=== PATIENT | male | born 1945 | race Caucasian/White ===

== ENCOUNTER 2019-09-15 22:29 | Inpatient (IN) ==
[2019-09-16] MEDS ORDERED: Ondansetron 4 MG/2 ML VIAL IVP PRN (02:19)
[2019-09-16] MEDS ORDERED: Naloxone 0.4 MG/ML INJ IVP PRN (02:19)
[2019-09-16] MEDS: *HR* Metoprolol 5 MG/5 ML VIAL IVP PRN ×2 (03:54→10:43)
[2019-09-16] MEDS: Ipratropium Neb 0.5 MG NEBULIZER IH SCH ×4 (03:57→21:59)
[2019-09-16] MEDS: Levalbuterol Neb 1.25 MG/3 ML IH SCH ×4 (03:57→21:59)
[2019-09-16 05:28] LABS: Red Cell Distribution Width 13.9 % (11.5-14.5)
[2019-09-16 05:29] LABS: Hematocrit 45.4 % (37.5-50.1); Hemoglobin 13.9 g/dL (12.9-16.9); Mean Corpuscular HGB Conc 30.6 g/dL (31.6-35.5); Mean Corpuscular Hemoglobin 32.7 pg (28.0-33.3); Mean Corpuscular Volume 106.8 fL (83.0-100.0); Platelet Count 206 K/mcL (140-400); Red Blood Count 4.25 M/mcL (4.19-5.50); White Blood Count 26.3 K/mcL (4.3-11.1)
[2019-09-16 05:38] LABS: INR 1.6; Prothrombin Time 18.5 Seconds (9.4-12.1)
[2019-09-16 06:09] LABS: Calcium 8.7 mg/dL (8.6-10.3); Magnesium 1.9 mg/dL (1.6-2.6); Phosphorous 4.1 mg/dL (2.7-4.5)
[2019-09-16 06:24] LABS: ABG Base Excess 5 mEq/L (-2 to 3); ABG HCO3 32 mEq/L (21-27); ABG Oxygen Saturation 91 % (95-98); ABG PCO2 59 mmHg (35-45); ABG PH 7.35 pH Units (7.32-7.45); ABG PO2 67 mmHg (85-104); ABG TCO2 34 mEq/L (20-26)
[2019-09-16] MEDS: Piperacillin/Tazobactam 3.375 GM in 0.9 % Sodium Chloride Mini Bag 100 ML IVPB SCH ×2 (07:47→16:50)
[2019-09-16] MEDS ORDERED: 0.9 % Sodium Chloride 1,000 ML IVC SCH (09:30)
[2019-09-16] MEDS: DilTIAZem 50 MG in 0.9 % Sodium Chloride 40 ML IVC SCH ×3 (11:20→22:41)
[2019-09-16] MEDS ORDERED: 0.9 % Sodium Chloride 250 ML IVC ONE ×2 (11:28→12:54)
[2019-09-16] MEDS ORDERED: 0.9 % Sodium Chloride 250 ML ONE (11:30)
[2019-09-16] MEDS ORDERED: 0.9 % Sodium Chloride 500 ML ONE (14:06)
[2019-09-16] MEDS ORDERED: Ringers Solution, Lactated 500 ML IVC ONE (15:07)
[2019-09-16] MEDS ORDERED: Ketorolac 15 MG/ML VIAL IVP ONE (17:27)
[2019-09-16] MEDS ORDERED: Heparin 25,000 UNIT/250 ML D5W 25,000 UNIT/250 ML IV.SOLN IVC SCH (18:15)
[2019-09-16 19:28] LABS: Heparin anti-factor XA UFH 0.43 IU/mL (0.30-0.70); INR 1.5; Prothrombin Time 17.3 Seconds (9.4-12.1)
[2019-09-16] MEDS ORDERED: *HR* Heparin 5,000 UNIT/ML VIAL IVP PRN (19:39)
[2019-09-16 20:06] LABS: Activated Partial Thrombo Time 34.5 Seconds (26.0-36.0)
[2019-09-17] MEDS ORDERED: *HR* OxyCODONE/APAP 5/325 TABLET PO ONE (00:11)
[2019-09-17] MEDS: Piperacillin/Tazobactam 3.375 GM in 0.9 % Sodium Chloride Mini Bag 100 ML IVPB SCH ×3 (00:25→16:16)
[2019-09-17] MEDS ORDERED: *HR* Heparin 5,000 UNIT/ML VIAL IVP ONE (00:57)
[2019-09-17] MEDS: Heparin 25,000 UNIT/250 ML D5W 25,000 UNIT/250 ML IV.SOLN IVC SCH ×3 (01:18→16:16)
[2019-09-17] MEDS: Ipratropium Neb 0.5 MG NEBULIZER IH SCH ×4 (03:51→22:05)
[2019-09-17] MEDS: Levalbuterol Neb 1.25 MG/3 ML IH SCH ×4 (03:51→22:05)
[2019-09-17 07:57] LABS: Basophils # 0.1 K/mcL (0.0-0.2); Basophils % 0.2 %; Hematocrit 40.6 % (37.5-50.1); Hemoglobin 12.8 g/dL (12.9-16.9); Lymphocytes # 0.8 K/mcL (0.6-4.6); Lymphocytes % 4.1 %; Mean Corpuscular HGB Conc 31.5 g/dL (31.6-35.5); Mean Corpuscular Hemoglobin 32.7 pg (28.0-33.3); Mean Corpuscular Volume 103.8 fL (83.0-100.0); Mean Platelet Volume 10.2 fL (9.4-12.4); Monocytes # 0.7 K/mcL (0.0-1.3); Monocytes % 3.5 %; Neutrophils # 18.5 K/mcL (1.6-8.9); Nucleated Red Blood Cells 0.1 /100 WBC (0); Platelet Count 174 K/mcL (140-400); Red Blood Count 3.91 M/mcL (4.19-5.50); Red Cell Distribution Width 13.9 % (11.5-14.5); Segmented Neutrophils % 91.2 %; White Blood Count 20.3 K/mcL (4.3-11.1)
[2019-09-17 08:20] LABS: Calcium 8.7 mg/dL (8.6-10.3); Magnesium 2.1 mg/dL (1.6-2.6); Phosphorous 4.6 mg/dL (2.7-4.5); Potassium 4.4 mEq/L (3.5-5.1)
[2019-09-17] MEDS ORDERED: Ringers Solution, Lactated 1,000 ML IVC SCH (08:30)
[2019-09-17] MEDS ORDERED: Lidocaine -MPF 1% 5 ML AMPUL INFILT ONE (10:30)
[2019-09-17 14:51] LABS: Sodium, Urine 14.6 mEq/L
[2019-09-17 14:55] LABS: Bilirubin,Urine Small (Negative); Blood,Urine Negative (Negative); Clarity,Urine Cloudy (Clear); Color,Urine Dark Yellow (Yellow); Glucose,Urine (UA) Normal (Normal); Ketones,Urine Negative (Negative); Leukocyte Esterase,Urine Trace (Negative); Nitrite,Urine Negative (Negative); Protein,Urine 30 mg/dL (Neg-Trace); Specific Gravity,Urine 1.024 (1.010-1.025)
[2019-09-17 15:00] LABS: Bacteria,Urine None Seen per hpf (None-Few); Hyaline Casts,Urine None Seen per lpf (None-Few); RBC,Urine 0-3 per hpf (0-3); Squamous Epithelial Cell,Urine Many per lpf (None-Few)
[2019-09-17] MEDS ORDERED: Perflutren Lipid Microsphere 1.3 ML in 0.9 % Sodium Chloride 8.7 ML IVP ONE (16:03)
[2019-09-17] MEDS ORDERED: Acetaminophen IV 1,000 MG/100 ML INFUS..BTL IVPB ONE (22:10)
[2019-09-17] MEDS: Ringers Solution, Lactated 1,000 ML IVC SCH (22:44)
[2019-09-18] MEDS: Piperacillin/Tazobactam 3.375 GM in 0.9 % Sodium Chloride Mini Bag 100 ML IVPB SCH ×4 (00:34→23:11)
[2019-09-18] MEDS: *HR* Heparin 5,000 UNIT/ML VIAL IVP PRN ×2 (00:45→16:20)
[2019-09-18] MEDS: Heparin 25,000 UNIT/250 ML D5W 25,000 UNIT/250 ML IV.SOLN IVC SCH ×3 (01:00→19:33)
[2019-09-18 03:28] LABS: Hematocrit 34.1 % (37.5-50.1); Mean Corpuscular HGB Conc 31.1 g/dL (31.6-35.5); Mean Corpuscular Hemoglobin 32.6 pg (28.0-33.3); Mean Corpuscular Volume 104.9 fL (83.0-100.0); Mean Platelet Volume 9.8 fL (9.4-12.4); Platelet Count 164 K/mcL (140-400); Red Blood Count 3.25 M/mcL (4.19-5.50); Red Cell Distribution Width 13.8 % (11.5-14.5)
[2019-09-18 03:29] LABS: Hemoglobin 10.6 g/dL (12.9-16.9)
[2019-09-18] MEDS: Levalbuterol Neb 1.25 MG/3 ML IH SCH ×4 (03:42→21:11)
[2019-09-18] MEDS: Ipratropium Neb 0.5 MG NEBULIZER IH SCH ×4 (03:42→21:11)
[2019-09-18 03:43] LABS: Albumin 2.7 g/dL (3.5-5.7); Magnesium 1.7 mg/dL (1.6-2.6); Potassium 3.6 mEq/L (3.5-5.1)
[2019-09-18] MEDS: Ringers Solution, Lactated 1,000 ML IVC SCH ×2 (06:43→16:08)
[2019-09-18] MEDS ORDERED: Metoprolol XL (24 HR) Succ 50 MG TAB.ER.24H PO SCH (09:00)
[2019-09-18] MEDS: *HR* Metoprolol 5 MG/5 ML VIAL IVP PRN (10:24)
[2019-09-18] MEDS: Gabapentin 300 MG CAPSULE PO SCH ×2 (16:03→20:08)
[2019-09-19] MEDS ORDERED: *HR* Heparin 5,000 UNIT/ML VIAL IVP PRN ×4 (00:58→08:40)
[2019-09-19] MEDS ORDERED: Heparin 25,000 UNIT/250 ML D5W 25,000 UNIT/250 ML IV.SOLN IVC SCH ×2 (01:00→02:15)
[2019-09-19 01:30] LABS: Basophils % 0.3 %; Eosinophils % 0.2 %; Hematocrit 32.2 % (37.5-50.1); Hematocrit 32.8 % (37.5-50.1); Hemoglobin 10.1 g/dL (12.9-16.9); Hemoglobin 10.2 g/dL (12.9-16.9); Immature Granulocytes % 0.6 % (0-4); Lymphocytes # 0.6 K/mcL (0.6-4.6); Lymphocytes % 6.4 %; Mean Corpuscular HGB Conc 31.1 g/dL (31.6-35.5); Mean Corpuscular HGB Conc 31.4 g/dL (31.6-35.5); Mean Corpuscular Hemoglobin 32.3 pg (28.0-33.3); Mean Corpuscular Hemoglobin 32.8 pg (28.0-33.3); Mean Corpuscular Volume 103.8 fL (83.0-100.0); Mean Corpuscular Volume 104.5 fL (83.0-100.0); Mean Platelet Volume 9.7 fL (9.4-12.4); Monocytes # 0.4 K/mcL (0.0-1.3); Monocytes % 4.4 %; Neutrophils # 7.8 K/mcL (1.6-8.9); Platelet Count 189 K/mcL (140-400); Platelet Count 195 K/mcL (140-400); Red Blood Count 3.08 M/mcL (4.19-5.50); Red Blood Count 3.16 M/mcL (4.19-5.50); Red Cell Distribution Width 13.5 % (11.5-14.5); Segmented Neutrophils % 88.1 %; White Blood Count 8.9 K/mcL (4.3-11.1)
[2019-09-19 01:40] LABS: Heparin anti-factor XA UFH 0.63 IU/mL (0.30-0.70); INR 1.4; Prothrombin Time 15.8 Seconds (9.4-12.1)
[2019-09-19] MEDS: Calcium Gluconate 1gm/50mL 1 GM/50 ML BAG IVPB SCH ×2 (01:48→03:15)
[2019-09-19 01:49] LABS: BUN/Creatinine Ratio 28 (6-26); Blood Urea Nitrogen 34 mg/dL (8-23); Calcium 7.7 mg/dL (8.6-10.3); Carbon Dioxide 23 mEq/L (23-29); Chloride 105 mEq/L (98-107); Glucose 95 mg/dL (70-105); Magnesium 1.7 mg/dL (1.6-2.6); Osmolality,Calculated 303 (280-300); Phosphorous 1.9 mg/dL (2.7-4.5); Potassium 3.6 mEq/L (3.5-5.1); Sodium 143 mEq/L (136-145); eGFR For African Americans > 60 (> 60); eGFR For Non-African Americans 58 (> 60)
[2019-09-19] MEDS: Ipratropium Neb 0.5 MG NEBULIZER IH SCH ×4 (03:21→21:16)
[2019-09-19] MEDS: Levalbuterol Neb 1.25 MG/3 ML IH SCH ×4 (03:21→21:16)
[2019-09-19] MEDS: Ringers Solution, Lactated 1,000 ML IVC SCH ×2 (04:42→15:36)
[2019-09-19] MEDS ORDERED: Isovue-370 500 ML BOTTLE IVP ONE (07:08)
[2019-09-19] MEDS ORDERED: Ringers Solution, Lactated 1,000 ML IVC SCH (07:24)
[2019-09-19] MEDS: Piperacillin/Tazobactam 3.375 GM in 0.9 % Sodium Chloride Mini Bag 100 ML IVPB SCH ×2 (07:35→15:34)
[2019-09-19] MEDS: Gabapentin 300 MG CAPSULE PO SCH ×3 (07:39→20:09)
[2019-09-19] MEDS ORDERED: Isovue-370 500 ML BOTTLE PO ONE (07:41)
[2019-09-19] MEDS ORDERED: *HR* Heparin 5,000 UNIT/ML VIAL IVP ONE (08:40)
[2019-09-19] MEDS ORDERED: Metoprolol XL (24 HR) Succ 50 MG TAB.ER.24H PO SCH (09:00)
[2019-09-19] MEDS: Heparin 25,000 UNIT/250 ML D5W 25,000 UNIT/250 ML IV.SOLN IVC SCH ×2 (11:06→22:02)
[2019-09-19] MEDS: *HR* Metoprolol 5 MG/5 ML VIAL IVP PRN ×2 (11:27→17:27)
[2019-09-19] MEDS: Metoprolol XL (24 HR) Succ 50 MG TAB.ER.24H PO SCH (20:09)
[2019-09-20] MEDS: Piperacillin/Tazobactam 3.375 GM in 0.9 % Sodium Chloride Mini Bag 100 ML IVPB SCH ×4 (00:46→23:34)
[2019-09-20 01:18] LABS: Basophils % 0.4 %; Eosinophils % 0.3 %; Hematocrit 39.2 % (37.5-50.1); Hemoglobin 12.1 g/dL (12.9-16.9); Immature Granulocytes % 0.8 % (0-4); Lymphocytes # 0.9 K/mcL (0.6-4.6); Lymphocytes % 9.6 %; Mean Corpuscular HGB Conc 30.9 g/dL (31.6-35.5); Mean Corpuscular Hemoglobin 32.1 pg (28.0-33.3); Mean Platelet Volume 10.1 fL (9.4-12.4); Monocytes # 0.5 K/mcL (0.0-1.3); Monocytes % 5.1 %; Neutrophils # 7.6 K/mcL (1.6-8.9); Platelet Count 244 K/mcL (140-400); Red Blood Count 3.77 M/mcL (4.19-5.50); Red Cell Distribution Width 13.6 % (11.5-14.5); Segmented Neutrophils % 83.8 %; White Blood Count 9.1 K/mcL (4.3-11.1)
[2019-09-20 02:06] LABS: BUN/Creatinine Ratio 23 (6-26); Blood Urea Nitrogen 29 mg/dL (8-23); Calcium 9.5 mg/dL (8.6-10.3); Carbon Dioxide 26 mEq/L (23-29); Chloride 106 mEq/L (98-107); Glucose 102 mg/dL (70-105); Osmolality,Calculated 292 (280-300); Phosphorous 2.9 mg/dL (2.7-4.5); Sodium 138 mEq/L (136-145); eGFR For African Americans > 60 (> 60); eGFR For Non-African Americans 55 (> 60)
[2019-09-20] MEDS: Ipratropium Neb 0.5 MG NEBULIZER IH SCH ×4 (03:20→21:41)
[2019-09-20] MEDS: Levalbuterol Neb 1.25 MG/3 ML IH SCH ×4 (03:20→21:41)
[2019-09-20] MEDS: *HR* Metoprolol 5 MG/5 ML VIAL IVP PRN (04:36)
[2019-09-20] MEDS: Ringers Solution, Lactated 1,000 ML IVC SCH (04:44)
[2019-09-20] MEDS: Gabapentin 300 MG CAPSULE PO SCH ×3 (08:28→19:57)
[2019-09-20] MEDS: Metoprolol XL (24 HR) Succ 50 MG TAB.ER.24H PO SCH ×2 (08:28→19:57)
[2019-09-20] MEDS: Heparin 25,000 UNIT/250 ML D5W 25,000 UNIT/250 ML IV.SOLN IVC SCH ×2 (08:49→18:41)
[2019-09-20] MEDS: *HR* OxyCODONE/APAP 5/325 TABLET PO PRN (11:14)
[2019-09-20] MEDS ORDERED: D10% in Water 500 ML IVC PRN (11:59)
[2019-09-20] MEDS ORDERED: D5% in Water 1,000 ML IVC PRN (12:06)
[2019-09-20] MEDS ORDERED: *HR* Dextrose 50 % in Water (Syg) 50 ML SYRINGE IVP PRN (12:06)
[2019-09-20] MEDS ORDERED: Dextrose Gel 15 GM/37.5 ML TUBE PO PRN ×2 (12:06)
[2019-09-20] MEDS ORDERED: Clinimix E 5%-15% SOLUTION 2,000 ML with MVI, adult with vitamin K 10 ML IVC SCH (17:00)
[2019-09-20] MEDS: Insulin LISPRO 300 UNITS/3 ML VIAL SQ SCH ×3 (17:20→23:40)
[2019-09-21] MEDS: Ipratropium Neb 0.5 MG NEBULIZER IH SCH ×4 (03:34→22:18)
[2019-09-21] MEDS: Levalbuterol Neb 1.25 MG/3 ML IH SCH ×4 (03:34→22:18)
[2019-09-21] MEDS: Heparin 25,000 UNIT/250 ML D5W 25,000 UNIT/250 ML IV.SOLN IVC SCH ×2 (04:00→15:57)
[2019-09-21 05:20] LABS: Basophils # 0.1 K/mcL (0.0-0.2); Basophils % 0.5 %; Eosinophils # 0.1 K/mcL (0.0-0.6); Eosinophils % 0.5 %; Immature Granulocytes % 1.4 % (0-4); Lymphocytes # 0.9 K/mcL (0.6-4.6); Lymphocytes % 9.7 %; Mean Corpuscular HGB Conc 31.3 g/dL (31.6-35.5); Mean Corpuscular Hemoglobin 32.4 pg (28.0-33.3); Mean Corpuscular Volume 103.5 fL (83.0-100.0); Mean Platelet Volume 9.6 fL (9.4-12.4); Monocytes # 0.5 K/mcL (0.0-1.3); Monocytes % 4.9 %; Neutrophils # 7.8 K/mcL (1.6-8.9); Platelet Count 245 K/mcL (140-400); Red Blood Count 3.67 M/mcL (4.19-5.50); Red Cell Distribution Width 13.2 % (11.5-14.5); White Blood Count 9.4 K/mcL (4.3-11.1)
[2019-09-21 05:23] LABS: Hemoglobin 11.9 g/dL (12.9-16.9)
[2019-09-21 05:32] LABS: BUN/Creatinine Ratio 19 (6-26); Blood Urea Nitrogen 21 mg/dL (8-23); Calcium 9.2 mg/dL (8.6-10.3); Carbon Dioxide 31 mEq/L (23-29); Chloride 105 mEq/L (98-107); Glucose 130 mg/dL (70-105); Osmolality,Calculated 297 (280-300); Phosphorous 3.4 mg/dL (2.7-4.5); Potassium 3.8 mEq/L (3.5-5.1); Sodium 141 mEq/L (136-145); eGFR For African Americans > 60 (> 60); eGFR For Non-African Americans > 60 (> 60)
[2019-09-21] MEDS: Insulin LISPRO 300 UNITS/3 ML VIAL SQ SCH ×5 (05:54→19:37)
[2019-09-21] MEDS: Metoprolol XL (24 HR) Succ 50 MG TAB.ER.24H PO SCH ×2 (07:48→19:51)
[2019-09-21] MEDS: Gabapentin 300 MG CAPSULE PO SCH ×3 (07:48→19:51)
[2019-09-21] MEDS: Piperacillin/Tazobactam 3.375 GM in 0.9 % Sodium Chloride Mini Bag 100 ML IVPB SCH ×2 (07:49→15:51)
[2019-09-21] MEDS ORDERED: Potassium Chloride 40 MEQ, Lidocaine 1% 2 ML in 0.9 % Sodium Chloride 500 ML IVPB ONE (10:23)
[2019-09-21] MEDS ORDERED: Clinimix E 5%-15% SOLUTION 2,000 ML with MVI, adult with vitamin K 10 ML IVC SCH (17:00)
[2019-09-22] MEDS: Piperacillin/Tazobactam 3.375 GM in 0.9 % Sodium Chloride Mini Bag 100 ML IVPB SCH ×3 (01:07→15:55)
[2019-09-22] MEDS: Insulin LISPRO 300 UNITS/3 ML VIAL SQ SCH ×7 (01:07→23:49)
[2019-09-22] MEDS: Heparin 25,000 UNIT/250 ML D5W 25,000 UNIT/250 ML IV.SOLN IVC SCH ×3 (01:30→20:56)
[2019-09-22] MEDS: Ipratropium Neb 0.5 MG NEBULIZER IH SCH ×4 (04:28→21:59)
[2019-09-22] MEDS: Levalbuterol Neb 1.25 MG/3 ML IH SCH ×4 (04:28→21:59)
[2019-09-22 04:42] LABS: BUN/Creatinine Ratio 16 (6-26); Basophils # 0.1 K/mcL (0.0-0.2); Basophils % 0.6 %; Blood Urea Nitrogen 16 mg/dL (8-23); Calcium 9.3 mg/dL (8.6-10.3); Carbon Dioxide 31 mEq/L (23-29); Chloride 104 mEq/L (98-107); Eosinophils # 0.1 K/mcL (0.0-0.6); Eosinophils % 1.2 %; Glucose 115 mg/dL (70-105); Hematocrit 38.1 % (37.5-50.1); Immature Granulocytes % 2.4 % (0-4); Lymphocytes # 1.1 K/mcL (0.6-4.6); Magnesium 1.9 mg/dL (1.6-2.6); Mean Corpuscular HGB Conc 31.5 g/dL (31.6-35.5); Mean Corpuscular Hemoglobin 32.4 pg (28.0-33.3); Mean Platelet Volume 10.1 fL (9.4-12.4); Monocytes # 0.5 K/mcL (0.0-1.3); Monocytes % 4.8 %; Neutrophils # 7.4 K/mcL (1.6-8.9); Osmolality,Calculated 292 (280-300); Platelet Count 276 K/mcL (140-400); Red Cell Distribution Width 13.2 % (11.5-14.5); Sodium 140 mEq/L (136-145); White Blood Count 9.3 K/mcL (4.3-11.1); eGFR For African Americans > 60 (> 60); eGFR For Non-African Americans > 60 (> 60)
[2019-09-22] MEDS: Gabapentin 300 MG CAPSULE PO SCH ×3 (08:06→21:19)
[2019-09-22] MEDS: Metoprolol XL (24 HR) Succ 50 MG TAB.ER.24H PO SCH ×2 (08:06→21:19)
[2019-09-22] MEDS: *HR* OxyCODONE/APAP 5/325 TABLET PO PRN ×2 (11:13→18:13)
[2019-09-22] MEDS: Furosemide 40 MG/4 ML VIAL IVP SCH ×2 (11:13→21:19)
[2019-09-22] MEDS ORDERED: Clinimix E 5%-15% SOLUTION 2,000 ML with MVI, adult with vitamin K 10 ML IVC SCH (17:00)
[2019-09-23] MEDS: Piperacillin/Tazobactam 3.375 GM in 0.9 % Sodium Chloride Mini Bag 100 ML IVPB SCH ×2 (00:04→09:14)
[2019-09-23] MEDS: *HR* OxyCODONE/APAP 5/325 TABLET PO PRN ×2 (01:26→16:21)
[2019-09-23] MEDS: Levalbuterol Neb 1.25 MG/3 ML IH SCH ×4 (03:29→22:12)
[2019-09-23] MEDS: Ipratropium Neb 0.5 MG NEBULIZER IH SCH ×4 (03:29→22:12)
[2019-09-23] MEDS: Insulin LISPRO 300 UNITS/3 ML VIAL SQ SCH ×5 (03:46→21:57)
[2019-09-23] MEDS ORDERED: *HR* OxyCODONE Immed Rel 5 MG TABLET PO STA (03:48)
[2019-09-23 04:34] LABS: Basophils # 0.1 K/mcL (0.0-0.2); Basophils % 0.8 %; Eosinophils # 0.2 K/mcL (0.0-0.6); Eosinophils % 2.5 %; Hematocrit 37.3 % (37.5-50.1); Hemoglobin 11.4 g/dL (12.9-16.9); Immature Granulocytes % 4.2 % (0-4); Lymphocytes # 1.2 K/mcL (0.6-4.6); Lymphocytes % 14.3 %; Mean Corpuscular HGB Conc 30.6 g/dL (31.6-35.5); Mean Corpuscular Hemoglobin 31.7 pg (28.0-33.3); Mean Corpuscular Volume 103.6 fL (83.0-100.0); Monocytes # 0.4 K/mcL (0.0-1.3); Monocytes % 5.2 %; Neutrophils # 6.1 K/mcL (1.6-8.9); Platelet Count 274 K/mcL (140-400); Red Cell Distribution Width 13.2 % (11.5-14.5); White Blood Count 8.3 K/mcL (4.3-11.1)
[2019-09-23 04:52] LABS: BUN/Creatinine Ratio 12 (6-26); Blood Urea Nitrogen 13 mg/dL (8-23); Calcium 7.7 mg/dL (8.6-10.3); Carbon Dioxide 27 mEq/L (23-29); Chloride 96 mEq/L (98-107); Glucose 393 mg/dL (70-105); Magnesium 1.5 mg/dL (1.6-2.6); Osmolality,Calculated 302 (280-300); Potassium 3.4 mEq/L (3.5-5.1); Sodium 138 mEq/L (136-145); eGFR For African Americans > 60 (> 60); eGFR For Non-African Americans > 60 (> 60)
[2019-09-23] MEDS ORDERED: metOLazone 5 MG TABLET PO SCH (09:00)
[2019-09-23] MEDS: Furosemide 40 MG/4 ML VIAL IVP SCH ×2 (09:13→22:06)
[2019-09-23] MEDS: Gabapentin 300 MG CAPSULE PO SCH ×3 (09:13→22:05)
[2019-09-23] MEDS: Metoprolol XL (24 HR) Succ 50 MG TAB.ER.24H PO SCH ×2 (09:13→22:05)
[2019-09-23] MEDS: Heparin 25,000 UNIT/250 ML D5W 25,000 UNIT/250 ML IV.SOLN IVC SCH (09:24)
[2019-09-23] MEDS: Apixaban 5 MG TABLET PO SCH ×2 (11:48→22:05)
[2019-09-23 15:12] LABS: Estimated Average Glucose 126 mg/dl
[2019-09-23] MEDS: Potassium Chloride Elixir 20 MEQ/15 ML UDC PO SCH ×2 (16:21→17:59)
[2019-09-23] MEDS ORDERED: Clinimix E 5%-15% SOLUTION 2,000 ML with MVI, adult with vitamin K 10 ML IVC SCH (17:00)
[2019-09-24] MEDS: Insulin LISPRO 300 UNITS/3 ML VIAL SQ SCH ×4 (00:07→12:29)
[2019-09-24 03:38] LABS: Basophils # 0.1 K/mcL (0.0-0.2); Basophils % 0.8 %; Eosinophils # 0.2 K/mcL (0.0-0.6); Eosinophils % 2.3 %; Hematocrit 39.3 % (37.5-50.1); Hemoglobin 12.3 g/dL (12.9-16.9); Immature Granulocytes % 4.4 % (0-4); Lymphocytes # 1.1 K/mcL (0.6-4.6); Mean Corpuscular HGB Conc 31.3 g/dL (31.6-35.5); Mean Corpuscular Hemoglobin 31.9 pg (28.0-33.3); Mean Corpuscular Volume 102.1 fL (83.0-100.0); Mean Platelet Volume 9.9 fL (9.4-12.4); Monocytes # 0.3 K/mcL (0.0-1.3); Monocytes % 3.9 %; Neutrophils # 6.6 K/mcL (1.6-8.9); Platelet Count 273 K/mcL (140-400); Red Blood Count 3.85 M/mcL (4.19-5.50); Red Cell Distribution Width 13.2 % (11.5-14.5); Segmented Neutrophils % 75.6 %; White Blood Count 8.8 K/mcL (4.3-11.1)
[2019-09-24] MEDS: *HR* OxyCODONE/APAP 5/325 TABLET PO PRN ×2 (03:38→09:48)
[2019-09-24] MEDS: Ipratropium Neb 0.5 MG NEBULIZER IH SCH ×2 (03:48→10:56)
[2019-09-24] MEDS: Levalbuterol Neb 1.25 MG/3 ML IH SCH ×2 (03:49→10:56)
[2019-09-24 04:26] LABS: BUN/Creatinine Ratio 13 (6-26); Blood Urea Nitrogen 17 mg/dL (8-23); Calcium 9.5 mg/dL (8.6-10.3); Carbon Dioxide 34 mEq/L (23-29); Chloride 98 mEq/L (98-107); Glucose 104 mg/dL (70-105); Osmolality,Calculated 286 (280-300); Phosphorous 5.1 mg/dL (2.7-4.5); Potassium 4.3 mEq/L (3.5-5.1); Sodium 137 mEq/L (136-145); eGFR For African Americans > 60 (> 60); eGFR For Non-African Americans 52 (> 60)
[2019-09-24 06:44] VITALS: BP 126/85
[2019-09-24] MEDS ORDERED: Furosemide 40 MG TABLET PO SCH (08:30)
[2019-09-24] MEDS ORDERED: polyethylene glycoL 3350 17 GM POWD.PACK PO SCH (09:00)
[2019-09-24] MEDS: Metoprolol XL (24 HR) Succ 50 MG TAB.ER.24H PO SCH (09:48)
[2019-09-24] MEDS: Apixaban 5 MG TABLET PO SCH (09:49)
[2019-09-24] MEDS: Gabapentin 300 MG CAPSULE PO SCH (09:49)
== END 2019-09-24 13:12 | disposition home or self-care (01) | DRG 871 ==
LOC: 2ANU → SUATTDRO 09-16 01:19
PROVIDERS: ADMIT Internal Medicine; ATTEND Internal Medicine
PROC: IRDRAIN (2019-09-16 13:00)

== ENCOUNTER 2019-10-14 06:22 | Inpatient (IN) ==
[2019-10-14] MEDS ORDERED: *HR* Rocuronium Bromide 50 MG/5 ML VIAL ONE ×2 (06:57→13:51)
[2019-10-14] MEDS ORDERED: Dexamethasone 4 MG/ML VIAL ONE (06:57)
[2019-10-14] MEDS ORDERED: *HR* Propofol 200 MG/20 ML VIAL IVP ONE (06:57)
[2019-10-14] MEDS ORDERED: *HR* FentaNYL (PF) 100 MCG/2 ML VIAL ONE ×5 (06:57→11:22)
[2019-10-14] MEDS ORDERED: *HR* Succinylcholine 200 MG/10 ML VIAL IVP ONE (06:57)
[2019-10-14] MEDS ORDERED: Lidocaine -MPF 2% 2 ML VIAL ONE (06:57)
[2019-10-14] MEDS ORDERED: Ondansetron 4 MG/2 ML VIAL ONE (06:57)
[2019-10-14] MEDS ORDERED: CeFAZolin Syr 3,000MG/30 ML 3,000 MG/30 ML SYRINGE IVPB ONE (07:19)
[2019-10-14] MEDS ORDERED: MetroNIDAZOLE 500 MG/100 ML 500 MG/100 ML BAG IVPB ONE (07:19)
[2019-10-14] MEDS ORDERED: Acetaminophen IV 1,000 MG/100 ML INFUS..BTL IVPB ONE ×2 (07:24→18:07)
[2019-10-14] MEDS ORDERED: Ipratropium Neb 0.5 MG NEBULIZER IH PRN ×2 (07:24→18:07)
[2019-10-14] MEDS ORDERED: *HR* Meperidine 25 MG/ML SYRINGE IVP PRN ×2 (07:24→18:07)
[2019-10-14] MEDS ORDERED: Albuterol 2.5 MG/3 ML NEBULIZER IH PRN ×2 (07:24→18:07)
[2019-10-14] MEDS ORDERED: Ondansetron 4 MG/2 ML VIAL IVP ONE ×2 (07:24→18:07)
[2019-10-14] MEDS ORDERED: Heparin 1,000 UNITS/500 mL 500 ML ONE (07:25)
[2019-10-14] MEDS ORDERED: Ringers Solution, Lactated 1,000 ML IVC SCH ×2 (07:30→18:07)
[2019-10-14] MEDS ORDERED: *HR* Phenylephrine 10 MG/ML VIAL ONE (08:26)
[2019-10-14 08:29] LABS: ABG Base Excess 6 mEq/L (-2 to 3); ABG Chloride 96 mEq/L (98-107); ABG Glucose 104 mg/dL (60-95); ABG HCO3 33 mEq/L (21-27); ABG Ionized Calcium 1.26 mmol/L (1.15-1.35); ABG Oxygen Saturation 100 % (95-98); ABG PCO2 58 mmHg (35-45); ABG PH 7.36 pH Units (7.32-7.45); ABG PO2 211 mmHg (85-104); ABG TCO2 35 mEq/L (20-26)
[2019-10-14] MEDS ORDERED: *HR* PHENYLEPHRINE 1,000 MCG/10 ML SYRINGE IVP ONE ×2 (09:51→11:57)
[2019-10-14] MEDS ORDERED: *HR* Metoprolol 5 MG/5 ML VIAL IVP ONE (10:01)
[2019-10-14] MEDS ORDERED: *HR* Magnesium Sulfate 1 GM/2 ML VIAL ONE ×2 (11:00→11:47)
[2019-10-14 11:58] LABS: ABG Base Excess 4 mEq/L (-2 to 3); ABG Chloride 97 mEq/L (98-107); ABG Glucose 181 mg/dL (60-95); ABG HCO3 27 mEq/L (21-27); ABG Ionized Calcium 1.19 mmol/L (1.15-1.35); ABG Oxygen Saturation 99 % (95-98); ABG PCO2 38 mmHg (35-45); ABG PH 7.47 pH Units (7.32-7.45); ABG PO2 148 mmHg (85-104); ABG TCO2 29 mEq/L (20-26)
[2019-10-14] MEDS ORDERED: *HR* Vasopressin 20 UNIT/ML VIAL ONE (12:55)
[2019-10-14] MEDS ORDERED: Albumin Human 5% 25.0 GM/500 ML IV.SOLN ONE (13:01)
[2019-10-14 13:32] LABS: ABG Base Excess 0 mEq/L (-2 to 3); ABG Chloride 100 mEq/L (98-107); ABG Glucose 216 mg/dL (60-95); ABG HCO3 27 mEq/L (21-27); ABG Ionized Calcium 1.19 mmol/L (1.15-1.35); ABG Oxygen Saturation 99 % (95-98); ABG PCO2 49 mmHg (35-45); ABG PH 7.35 pH Units (7.32-7.45); ABG PO2 143 mmHg (85-104); ABG TCO2 28 mEq/L (20-26)
[2019-10-14] MEDS: *HR* FentaNYL (PF) 100 MCG/2 ML VIAL IVP PRN ×2 (15:40→16:13)
[2019-10-14 17:25] LABS: Basophils % 0.1 %; Hematocrit 34.3 % (37.5-50.1); Hemoglobin 11.1 g/dL (12.9-16.9); Immature Granulocytes % 0.4 % (0-4); Lymphocytes # 0.5 K/mcL (0.6-4.6); Lymphocytes % 2.2 %; Mean Corpuscular HGB Conc 32.4 g/dL (31.6-35.5); Mean Corpuscular Hemoglobin 32.7 pg (28.0-33.3); Mean Corpuscular Volume 101.2 fL (83.0-100.0); Mean Platelet Volume 10.3 fL (9.4-12.4); Monocytes # 0.9 K/mcL (0.0-1.3); Monocytes % 4.5 %; Neutrophils # 19.4 K/mcL (1.6-8.9); Platelet Count 182 K/mcL (140-400); Red Blood Count 3.39 M/mcL (4.19-5.50); Red Cell Distribution Width 13.5 % (11.5-14.5); Segmented Neutrophils % 92.8 %; White Blood Count 20.9 K/mcL (4.3-11.1)
[2019-10-14] MEDS ORDERED: Morphine PCA 30 MG/ 30 ML 30 ML PCA.VIAL IVC PRN (17:34)
[2019-10-14 17:45] LABS: Albumin 3.7 g/dL (3.5-5.7); Albumin/Globulin Ratio 1.9 (1.1-2.2); Bilirubin,Total 0.5 mg/dL (0.3-1.0); Calcium 8.7 mg/dL (8.6-10.3); Potassium 3.9 mEq/L (3.5-5.1); Total Protein 5.7 g/dL (6.4-8.9)
[2019-10-14] MEDS ORDERED: Naloxone 0.4 MG/ML INJ IVP PRN ×2 (17:47→18:07)
[2019-10-14] MEDS ORDERED: *HR* Metoprolol 5 MG/5 ML VIAL IVP SCH (18:00)
[2019-10-14] MEDS ORDERED: tiZANidine 4 MG TABLET PO PRN (18:07)
[2019-10-14] MEDS ORDERED: *HR* FentaNYL (PF) 100 MCG/2 ML VIAL IVP PRN (18:07)
[2019-10-14 19:09] LABS: Basophils % 0.1 %; Immature Granulocytes % 0.3 % (0-4); Lymphocytes # 0.3 K/mcL (0.6-4.6); Lymphocytes % 1.6 %; Mean Corpuscular HGB Conc 32.4 g/dL (31.6-35.5); Mean Corpuscular Hemoglobin 32.8 pg (28.0-33.3); Mean Corpuscular Volume 101.5 fL (83.0-100.0); Mean Platelet Volume 10.4 fL (9.4-12.4); Monocytes # 0.7 K/mcL (0.0-1.3); Monocytes % 3.5 %; Platelet Count 185 K/mcL (140-400); Red Blood Count 3.35 M/mcL (4.19-5.50); Red Cell Distribution Width 13.4 % (11.5-14.5); Segmented Neutrophils % 94.5 %; White Blood Count 21.2 K/mcL (4.3-11.1)
[2019-10-14 19:30] LABS: Calcium 9.2 mg/dL (8.6-10.3); Phosphorous 6.1 mg/dL (2.7-4.5); Potassium 4.4 mEq/L (3.5-5.1)
[2019-10-14] MEDS: Ringers Solution, Lactated 1,000 ML IVC SCH (20:05)
[2019-10-14] MEDS ORDERED: Gabapentin 300 MG CAPSULE PO SCH (21:00)
[2019-10-14] MEDS: Morphine PCA 30 MG/ 30 ML 30 ML PCA.VIAL IVC PRN (21:50)
[2019-10-14] MEDS: DilTIAZem 50 MG in 0.9 % Sodium Chloride 40 ML IVC SCH (22:16)
[2019-10-15] MEDS: *HR* Metoprolol 5 MG/5 ML VIAL IVP SCH ×2 (00:40→06:06)
[2019-10-15] MEDS: Piperacillin/Tazobactam 3.375 GM in 0.9 % Sodium Chloride Mini Bag 100 ML IVPB SCH ×3 (01:08→16:11)
[2019-10-15] MEDS: Ringers Solution, Lactated 1,000 ML IVC SCH ×2 (01:14→12:00)
[2019-10-15 02:02] LABS: Hematocrit 30.4 % (37.5-50.1); Hemoglobin 9.9 g/dL (12.9-16.9)
[2019-10-15 02:03] LABS: Basophils % 0.1 %; Immature Granulocytes % 0.4 % (0-4); Lymphocytes # 0.4 K/mcL (0.6-4.6); Lymphocytes % 2.5 %; Mean Corpuscular HGB Conc 32.3 g/dL (31.6-35.5); Mean Corpuscular Hemoglobin 32.5 pg (28.0-33.3); Mean Corpuscular Volume 100.6 fL (83.0-100.0); Mean Platelet Volume 10.5 fL (9.4-12.4); Monocytes # 0.7 K/mcL (0.0-1.3); Neutrophils # 15.7 K/mcL (1.6-8.9); Platelet Count 167 K/mcL (140-400); Red Blood Count 3.08 M/mcL (4.19-5.50); Red Cell Distribution Width 13.8 % (11.5-14.5); White Blood Count 16.9 K/mcL (4.3-11.1)
[2019-10-15 02:22] LABS: Magnesium 2.1 mg/dL (1.6-2.6); Phosphorous 5.6 mg/dL (2.7-4.5); Potassium 4.7 mEq/L (3.5-5.1)
[2019-10-15 04:56] LABS: Bilirubin,Urine Negative (Negative); Blood,Urine Large (Negative); Clarity,Urine Turbid (Clear); Glucose,Urine (UA) Normal (Normal); Ketones,Urine Trace mg/dL (Negative); Leukocyte Esterase,Urine Small (Negative); Nitrite,Urine Negative (Negative); Protein,Urine 30 mg/dL (Neg-Trace); Specific Gravity,Urine 1.028 (1.010-1.025); Urobilinogen,Urine Normal (Normal)
[2019-10-15 04:59] LABS: Bacteria,Urine None Seen per hpf (None-Few); Hyaline Casts,Urine None Seen per lpf (None-Few); RBC,Urine 50-100 per hpf (0-3); Squamous Epithelial Cell,Urine Moderate per lpf (None-Few)
[2019-10-15 05:00] LABS: Color,Urine Yellow (Yellow)
[2019-10-15 05:09] LABS: Amorphous Sediment,Urine Moderate per hpf (Few)
[2019-10-15 06:00] LABS: Protein/Creatinine Ratio,Urine 0.57 mg/mg (0.00-0.20); Sodium, Urine 14.8 mEq/L
[2019-10-15] MEDS: DilTIAZem 50 MG in 0.9 % Sodium Chloride 40 ML IVC SCH (06:06)
[2019-10-15 06:45] LABS: Hematocrit 29.9 % (37.5-50.1); Hemoglobin 9.8 g/dL (12.9-16.9)
[2019-10-15] MEDS ORDERED: Metoprolol XL (24 HR) Succ 50 MG TAB.ER.24H PO SCH (09:00)
[2019-10-15] MEDS: 0.9 % Sodium Chloride 1,000 ML IVC SCH ×2 (09:16→12:22)
[2019-10-15] MEDS ORDERED: D10% in Water 500 ML IVC PRN (10:46)
[2019-10-15] MEDS ORDERED: Lidocaine -MPF 1% 5 ML AMPUL INFILT ONE (11:04)
[2019-10-15] MEDS: Metoprolol XL (24 HR) Succ 50 MG TAB.ER.24H PO SCH (12:00)
[2019-10-15] MEDS ORDERED: Clinimix E 5%-15% SOLUTION 2,000 ML with MVI, adult with vitamin K 10 ML IVC SCH (17:00)
[2019-10-15] MEDS: Morphine PCA 30 MG/ 30 ML 30 ML PCA.VIAL IVC PRN (17:31)
[2019-10-16] MEDS: Ringers Solution, Lactated 1,000 ML IVC SCH ×2 (00:31→11:15)
[2019-10-16] MEDS: Piperacillin/Tazobactam 3.375 GM in 0.9 % Sodium Chloride Mini Bag 100 ML IVPB SCH ×3 (00:35→15:04)
[2019-10-16 05:44] LABS: Basophils % 0.2 %; Eosinophils # 0.1 K/mcL (0.0-0.6); Eosinophils % 0.6 %; Hematocrit 26.8 % (37.5-50.1); Hemoglobin 8.5 g/dL (12.9-16.9); Immature Granulocytes % 0.9 % (0-4); Lymphocytes # 0.7 K/mcL (0.6-4.6); Lymphocytes % 3.7 %; Mean Corpuscular HGB Conc 31.7 g/dL (31.6-35.5); Mean Corpuscular Hemoglobin 33.6 pg (28.0-33.3); Mean Corpuscular Volume 105.9 fL (83.0-100.0); Mean Platelet Volume 10.3 fL (9.4-12.4); Monocytes # 1.1 K/mcL (0.0-1.3); Monocytes % 6.4 %; Neutrophils # 15.6 K/mcL (1.6-8.9); Nucleated Red Blood Cells 0.1 /100 WBC (0); Platelet Count 154 K/mcL (140-400); Red Blood Count 2.53 M/mcL (4.19-5.50); Red Cell Distribution Width 14.2 % (11.5-14.5); Segmented Neutrophils % 88.2 %; White Blood Count 17.6 K/mcL (4.3-11.1)
[2019-10-16 06:27] LABS: Calcium 8.7 mg/dL (8.6-10.3); Magnesium 2.2 mg/dL (1.6-2.6); Phosphorous 4.8 mg/dL (2.7-4.5); Potassium 4.5 mEq/L (3.5-5.1)
[2019-10-16] MEDS: Metoprolol XL (24 HR) Succ 50 MG TAB.ER.24H PO SCH (08:36)
[2019-10-16] MEDS: *HR* Heparin 5,000 UNIT/ML VIAL SQ SCH ×2 (08:38→18:19)
[2019-10-16] MEDS ORDERED: Furosemide 40 MG TABLET PO SCH (09:00)
[2019-10-16 13:11] LABS: Hematocrit 26.8 % (37.5-50.1); Hemoglobin 7.6 g/dL (12.9-16.9)
[2019-10-16] MEDS: Albumin 25% 25gram/100mL 25 GM/100 ML IV.SOLN IVPB SCH (15:05)
[2019-10-16 15:44] LABS: Uric Acid 7.5 mg/dL (2.3-7.6)
[2019-10-16] MEDS ORDERED: Morphine Sulfate 2 MG/ML SYRINGE IVP ONE (16:12)
[2019-10-16] MEDS ORDERED: Clinimix E 5%-15% SOLUTION 2,000 ML with MVI, adult with vitamin K 10 ML IVC SCH (17:00)
[2019-10-16 17:42] LABS: Hemoglobin 7.5 g/dL (12.9-16.9)
[2019-10-16] MEDS ORDERED: Ringers Solution, Lactated 1,000 ML IVC SCH (18:18)
[2019-10-17] MEDS: Piperacillin/Tazobactam 3.375 GM in 0.9 % Sodium Chloride Mini Bag 100 ML IVPB SCH ×3 (00:43→15:18)
[2019-10-17] MEDS: Albumin 25% 25gram/100mL 25 GM/100 ML IV.SOLN IVPB SCH ×2 (00:45→08:23)
[2019-10-17] MEDS: Furosemide 20 MG/2 ML VIAL IVP ONE ×2 (00:49→01:16)
[2019-10-17] MEDS: Ipratropium/Albuterol Neb 3 ML IH PRN (05:01)
[2019-10-17 05:27] LABS: Basophils % 0.1 %; Eosinophils % 0.1 %; Hematocrit 23.7 % (37.5-50.1); Hemoglobin 7.5 g/dL (12.9-16.9); Immature Granulocytes % 0.4 % (0-4); Lymphocytes # 0.5 K/mcL (0.6-4.6); Lymphocytes % 4.9 %; Mean Corpuscular HGB Conc 31.6 g/dL (31.6-35.5); Mean Corpuscular Hemoglobin 32.1 pg (28.0-33.3); Mean Corpuscular Volume 101.3 fL (83.0-100.0); Mean Platelet Volume 9.5 fL (9.4-12.4); Monocytes # 0.5 K/mcL (0.0-1.3); Monocytes % 4.6 %; Neutrophils # 9.9 K/mcL (1.6-8.9); Nucleated Red Blood Cells 0.2 /100 WBC (0); Platelet Count 131 K/mcL (140-400); Red Blood Count 2.34 M/mcL (4.19-5.50); Red Cell Distribution Width 15.9 % (11.5-14.5); Segmented Neutrophils % 89.9 %
[2019-10-17 05:46] LABS: Calcium 8.9 mg/dL (8.6-10.3); Magnesium 2.1 mg/dL (1.6-2.6); Phosphorous 1.9 mg/dL (2.7-4.5); Potassium 3.8 mEq/L (3.5-5.1)
[2019-10-17] MEDS: *HR* Heparin 5,000 UNIT/ML VIAL SQ SCH (06:45)
[2019-10-17] MEDS: Metoprolol XL (24 HR) Succ 50 MG TAB.ER.24H PO SCH (08:21)
[2019-10-17] MEDS ORDERED: 0.9 % Sodium Chloride 250 ML ONE (10:00)
[2019-10-17] MEDS ORDERED: Lidocaine -MPF 1% 5 ML AMPUL INFILT ONE (13:28)
[2019-10-17] MEDS ORDERED: Furosemide 20 MG/2 ML VIAL IVP ONE (15:00)
[2019-10-17] MEDS: D5% in 0.45% NACL 1,000 ML IVC SCH (15:19)
[2019-10-17 16:17] LABS: INR 1.2; Prothrombin Time 13.3 Seconds (9.4-12.1)
[2019-10-17 16:19] LABS: Basophils % 0.2 %; Eosinophils % 0.1 %; Hematocrit 28.6 % (37.5-50.1); Hemoglobin 9.1 g/dL (12.9-16.9); Immature Granulocytes % 0.4 % (0-4); Lymphocytes # 0.7 K/mcL (0.6-4.6); Lymphocytes % 5.6 %; Mean Corpuscular HGB Conc 31.8 g/dL (31.6-35.5); Mean Corpuscular Hemoglobin 32.6 pg (28.0-33.3); Mean Corpuscular Volume 102.5 fL (83.0-100.0); Mean Platelet Volume 10.2 fL (9.4-12.4); Monocytes # 0.5 K/mcL (0.0-1.3); Monocytes % 3.9 %; Platelet Count 178 K/mcL (140-400); Red Blood Count 2.79 M/mcL (4.19-5.50); Red Cell Distribution Width 16.2 % (11.5-14.5); Segmented Neutrophils % 89.8 %; White Blood Count 12.2 K/mcL (4.3-11.1)
[2019-10-17 16:32] LABS: Alanine Aminotransferase 10 Units/L (7-52); Albumin 3.6 g/dL (3.5-5.7); Albumin/Globulin Ratio 1.5 (1.1-2.2); Alkaline Phosphatase 31 Units/L (34-104); Aspartate Amino Transferase 35 Units/L (13-39); BUN/Creatinine Ratio 22 (6-26); Bilirubin,Total 0.9 mg/dL (0.3-1.0); Blood Urea Nitrogen 31 mg/dL (8-23); Calcium 9.1 mg/dL (8.6-10.3); Carbon Dioxide 36 mEq/L (23-29); Chloride 105 mEq/L (98-107); Globulin 2.4 g/dL (2.4-3.5); Glucose 107 mg/dL (70-105); Osmolality,Calculated 305 (280-300); Phosphorous 2.4 mg/dL (2.7-4.5); Sodium 144 mEq/L (136-145); eGFR For African Americans > 60 (> 60); eGFR For Non-African Americans 50 (> 60)
[2019-10-17] MEDS ORDERED: Clinimix E 5%-15% SOLUTION 2,000 ML with MVI, adult with vitamin K 10 ML IVC SCH (17:00)
[2019-10-17 22:50] LABS: Hematocrit 28.8 % (37.5-50.1); Hemoglobin 9.2 g/dL (12.9-16.9)
[2019-10-18] MEDS: Piperacillin/Tazobactam 3.375 GM in 0.9 % Sodium Chloride Mini Bag 100 ML IVPB SCH ×3 (00:09→15:46)
[2019-10-18] MEDS: D5% in 0.45% NACL 1,000 ML IVC SCH ×2 (00:15→20:42)
[2019-10-18 04:13] LABS: Hematocrit 28.3 % (37.5-50.1); Mean Corpuscular HGB Conc 31.8 g/dL (31.6-35.5); Mean Corpuscular Hemoglobin 32.7 pg (28.0-33.3); Mean Corpuscular Volume 102.9 fL (83.0-100.0); Mean Platelet Volume 9.9 fL (9.4-12.4); Platelet Count 191 K/mcL (140-400); Red Blood Count 2.75 M/mcL (4.19-5.50); White Blood Count 12.2 K/mcL (4.3-11.1)
[2019-10-18 04:32] LABS: BUN/Creatinine Ratio 20 (6-26); Blood Urea Nitrogen 27 mg/dL (8-23); Calcium 9.3 mg/dL (8.6-10.3); Carbon Dioxide 37 mEq/L (23-29); Chloride 104 mEq/L (98-107); Glucose 134 mg/dL (70-105); Magnesium 2.1 mg/dL (1.6-2.6); Osmolality,Calculated 307 (280-300); Potassium 4.1 mEq/L (3.5-5.1); Sodium 145 mEq/L (136-145); eGFR For African Americans > 60 (> 60); eGFR For Non-African Americans 52 (> 60)
[2019-10-18] MEDS ORDERED: Potassium Phosphate 44 MEQ in 0.9 % Sodium Chloride 250 ML IVPB ONE (07:29)
[2019-10-18] MEDS: Metoprolol XL (24 HR) Succ 50 MG TAB.ER.24H PO SCH (07:57)
[2019-10-18] MEDS: Furosemide 40 MG TABLET PO SCH (12:28)
[2019-10-18] MEDS: Gabapentin 100 MG CAPSULE PO SCH ×2 (12:28→20:41)
[2019-10-18] MEDS: Ipratropium/Albuterol Neb 3 ML IH PRN (17:01)
[2019-10-18] MEDS: *HR* Heparin 5,000 UNIT/ML VIAL SQ SCH (17:21)
[2019-10-19] MEDS: Piperacillin/Tazobactam 3.375 GM in 0.9 % Sodium Chloride Mini Bag 100 ML IVPB SCH ×2 (00:25→08:41)
[2019-10-19 04:58] LABS: Hematocrit 27.8 % (37.5-50.1); Hemoglobin 8.7 g/dL (12.9-16.9)
[2019-10-19] MEDS: *HR* Heparin 5,000 UNIT/ML VIAL SQ SCH (05:15)
[2019-10-19 05:16] LABS: BUN/Creatinine Ratio 19 (6-26); Blood Urea Nitrogen 23 mg/dL (8-23); Calcium 8.9 mg/dL (8.6-10.3); Carbon Dioxide 35 mEq/L (23-29); Chloride 104 mEq/L (98-107); Glucose 112 mg/dL (70-105); Magnesium 1.9 mg/dL (1.6-2.6); Osmolality,Calculated 300 (280-300); Phosphorous 2.8 mg/dL (2.7-4.5); Potassium 3.9 mEq/L (3.5-5.1); Sodium 143 mEq/L (136-145); eGFR For African Americans > 60 (> 60); eGFR For Non-African Americans 58 (> 60)
[2019-10-19] MEDS: D5% in 0.45% NACL 1,000 ML IVC SCH ×2 (07:54→12:30)
[2019-10-19] MEDS: Furosemide 40 MG TABLET PO SCH (08:40)
[2019-10-19] MEDS: Metoprolol XL (24 HR) Succ 50 MG TAB.ER.24H PO SCH (08:41)
[2019-10-19] MEDS: Gabapentin 100 MG CAPSULE PO SCH ×2 (08:41→20:57)
[2019-10-19] MEDS: Ipratropium/Albuterol Neb 3 ML IH PRN (16:02)
[2019-10-19] MEDS ORDERED: Menthol 9.1 MG LOZENGE PO PRN (20:37)
[2019-10-20] MEDS: D5% in 0.45% NACL 1,000 ML IVC SCH (03:01)
[2019-10-20] MEDS: Metoprolol XL (24 HR) Succ 50 MG TAB.ER.24H PO SCH (08:16)
[2019-10-20] MEDS: Furosemide 40 MG TABLET PO SCH (08:16)
[2019-10-20] MEDS: Gabapentin 100 MG CAPSULE PO SCH (08:16)
[2019-10-20 10:32] VITALS: BP 145/79
== END 2019-10-20 15:15 | disposition other institution (70) | DRG 329 ==
LOC: SAMDAY 06:22 → SUATTDRO 06:42 → 2NNU 17:17 → 3ANU 10-18 17:36
PROVIDERS: ADMIT Surgery; ATTEND Student in an Organized Health Care Education/Training Program

== ENCOUNTER 2019-11-09 21:49 | Inpatient (IN) ==
[2019-11-10] MEDS ORDERED: Naloxone 0.4 MG/ML INJ IVP PRN ×2 (00:53→01:00)
[2019-11-10] MEDS ORDERED: 0.9 % Sodium Chloride 1,000 ML IVC SCH ×2 (02:30→11:30)
[2019-11-10 03:47] LABS: Basophils % 0.3 %; Eosinophils # 0.2 K/mcL (0.0-0.6); Eosinophils % 2.4 %; Hematocrit 31.9 % (37.5-50.1); Hemoglobin 9.9 g/dL (12.9-16.9); Immature Granulocytes % 0.2 % (0-4); Lymphocytes # 1.3 K/mcL (0.6-4.6); Lymphocytes % 14.9 %; Mean Corpuscular Hemoglobin 31.7 pg (28.0-33.3); Mean Corpuscular Volume 102.2 fL (83.0-100.0); Mean Platelet Volume 9.9 fL (9.4-12.4); Monocytes # 0.5 K/mcL (0.0-1.3); Monocytes % 5.7 %; Neutrophils # 6.8 K/mcL (1.6-8.9); Platelet Count 224 K/mcL (140-400); Red Blood Count 3.12 M/mcL (4.19-5.50); Red Cell Distribution Width 14.6 % (11.5-14.5); Segmented Neutrophils % 76.5 %; White Blood Count 8.8 K/mcL (4.3-11.1)
[2019-11-10 04:13] LABS: Albumin 3.7 g/dL (3.5-5.7); Albumin/Globulin Ratio 1.4 (1.1-2.2); Bilirubin,Total 0.3 mg/dL (0.3-1.0); Calcium 9.2 mg/dL (8.6-10.3); Globulin 2.7 g/dL (2.4-3.5); Magnesium 2.1 mg/dL (1.6-2.6); Phosphorous 4.8 mg/dL (2.7-4.5); Total Protein 6.4 g/dL (6.4-8.9)
[2019-11-10 04:22] LABS: Thyroid Stimulating Hormone 1.824 mcIU/mL (0.340-5.600)
[2019-11-10 04:33] LABS: Bilirubin,Urine Negative (Negative); Blood,Urine Negative (Negative); Clarity,Urine Clear (Clear); Color,Urine Yellow (Yellow); Glucose,Urine (UA) Normal (Normal); Ketones,Urine Negative (Negative); Leukocyte Esterase,Urine Small (Negative); Nitrite,Urine Negative (Negative); PH,Urine 5.5 pH Units (5.0-8.0); Protein,Urine Negative (Neg-Trace); Specific Gravity,Urine 1.018 (1.010-1.025); Urobilinogen,Urine Normal (Normal)
[2019-11-10 04:35] LABS: Bacteria,Urine None Seen per hpf (None-Few); Hyaline Casts,Urine None Seen per lpf (None-Few); Squamous Epithelial Cell,Urine Moderate per lpf (None-Few); WBC,Urine 0-3 per hpf (0-3)
[2019-11-10] MEDS ORDERED: Gabapentin 300 MG CAPSULE PO SCH (05:45)
[2019-11-10] MEDS: Apixaban 5 MG TABLET PO SCH ×2 (09:34→20:28)
[2019-11-10] MEDS ORDERED: tiZANidine 4 MG TABLET PO PRN (11:09)
[2019-11-10] MEDS ORDERED: Ipratropium/Albuterol Neb 3 ML IH PRN (11:09)
[2019-11-10] MEDS: Metoprolol XL (24 HR) Succ 50 MG TAB.ER.24H PO SCH (20:28)
[2019-11-11 07:50] LABS: Basophils % 0.5 %; Eosinophils # 0.2 K/mcL (0.0-0.6); Eosinophils % 2.8 %; Hematocrit 34.8 % (37.5-50.1); Hemoglobin 10.5 g/dL (12.9-16.9); Immature Granulocytes % 0.1 % (0-4); Lymphocytes % 12.6 %; Mean Corpuscular HGB Conc 30.2 g/dL (31.6-35.5); Mean Corpuscular Volume 102.7 fL (83.0-100.0); Mean Platelet Volume 9.3 fL (9.4-12.4); Monocytes # 0.4 K/mcL (0.0-1.3); Monocytes % 5.8 %; Platelet Count 234 K/mcL (140-400); Red Blood Count 3.39 M/mcL (4.19-5.50); Red Cell Distribution Width 14.3 % (11.5-14.5); Segmented Neutrophils % 78.2 %; White Blood Count 7.6 K/mcL (4.3-11.1)
[2019-11-11 08:05] LABS: Calcium 9.6 mg/dL (8.6-10.3); Potassium 3.6 mEq/L (3.5-5.1)
[2019-11-11] MEDS: Metoprolol XL (24 HR) Succ 50 MG TAB.ER.24H PO SCH ×2 (09:42→19:59)
[2019-11-11] MEDS: Apixaban 5 MG TABLET PO SCH ×2 (09:42→19:59)
[2019-11-11] MEDS: Furosemide 20 MG TABLET PO SCH (15:42)
[2019-11-11] MEDS ORDERED: *HR* Promethazine 25 MG/ML VIAL IVP ONE (23:41)
[2019-11-12] MEDS ORDERED: Ondansetron 4 MG/2 ML VIAL IVP PRN (07:34)
[2019-11-12 09:01] LABS: Calcium 9.9 mg/dL (8.6-10.3); Potassium 3.5 mEq/L (3.5-5.1)
[2019-11-12] MEDS: Furosemide 20 MG TABLET PO SCH (09:33)
[2019-11-12] MEDS: Metoprolol XL (24 HR) Succ 50 MG TAB.ER.24H PO SCH (09:33)
[2019-11-12] MEDS: Apixaban 5 MG TABLET PO SCH (09:33)
[2019-11-12 16:36] VITALS: BP 127/70
== END 2019-11-12 17:53 | disposition home health service (06) | DRG 683 ==
LOC: 3ANU → SUATTDRO 23:13
PROVIDERS: ADMIT Internal Medicine; ATTEND Internal Medicine

== ENCOUNTER 2020-03-02 00:23 | Observation (INO) ==
[2020-03-03] MEDS ORDERED: Naloxone 0.4 MG/ML INJ IVP PRN (01:59)
[2020-03-03 02:43] LABS: INR 1.4; Prothrombin Time 15.9 Seconds (9.4-12.1)
[2020-03-03 02:45] LABS: Activated Partial Thrombo Time 35.7 Seconds (26.0-36.0)
[2020-03-03 02:49] LABS: Basophils # 0.1 K/mcL (0.0-0.2); Basophils % 0.2 %; Hematocrit 43.1 % (37.5-50.1); Immature Granulocytes % 0.6 % (0-4); Lymphocytes # 0.7 K/mcL (0.6-4.6); Lymphocytes % 3.2 %; Mean Corpuscular HGB Conc 30.2 g/dL (31.6-35.5); Mean Corpuscular Hemoglobin 28.9 pg (28.0-33.3); Mean Corpuscular Volume 95.8 fL (83.0-100.0); Mean Platelet Volume 9.6 fL (9.4-12.4); Monocytes # 1.2 K/mcL (0.0-1.3); Monocytes % 5.3 %; Neutrophils # 19.8 K/mcL (1.6-8.9); Platelet Count 231 K/mcL (140-400); Red Cell Distribution Width 17.2 % (11.5-14.5); Segmented Neutrophils % 90.7 %; White Blood Count 21.9 K/mcL (4.3-11.1)
[2020-03-03] MEDS ORDERED: *HR* Heparin 5,000 UNIT/ML VIAL IVP PRN ×2 (03:11)
[2020-03-03] MEDS ORDERED: Heparin 25,000UNIT/250ML 1/2NS 25,000 UNIT/250 ML IV.SOLN IVC SCH (03:15)
[2020-03-03] MEDS ORDERED: Perflutren Lipid Microsphere 1.3 ML in 0.9 % Sodium Chloride 8.7 ML IVP PRN (03:27)
[2020-03-03] MEDS ORDERED: DilTIAZem 50 MG/50 ML IV.SOLN IVC SCH (03:30)
[2020-03-03] MEDS ORDERED: Acetaminophen 325 MG TABLET PO PRN (04:31)
[2020-03-03] MEDS ORDERED: *HR* Promethazine 25 MG/ML VIAL IVP PRN (04:31)
[2020-03-03 06:04] LABS: Calcium 9.5 mg/dL (8.6-10.3); Magnesium 2.1 mg/dL (1.6-2.6); Phosphorous 4.4 mg/dL (2.7-4.5); Potassium 4.2 mEq/L (3.5-5.1)
[2020-03-03 06:09] LABS: Troponin I 0.25 ng/mL (< 0.04)
[2020-03-03] MEDS: Budesonide/Formoterol 160/4.5 1 PUFF INH IH SCH ×2 (07:20→21:49)
[2020-03-03] MEDS: Metoprolol XL (24 HR) Succ 50 MG TAB.ER.24H PO SCH (08:59)
[2020-03-03] MEDS: cefTRIAXone 1,000 MG in Water for inj. (sterile) 10 ML IVP SCH (09:00)
[2020-03-03] MEDS ORDERED: tiZANidine 4 MG TABLET PO PRN (10:14)
[2020-03-03] MEDS ORDERED: Ergocalciferol (VIT D2) 50,000 UNIT (1.25MG) CAP PO SCH (10:15)
[2020-03-03] MEDS: Ipratropium/Albuterol Neb 3 ML IH SCH ×3 (10:39→21:49)
[2020-03-03] MEDS: predniSONE 20 MG TABLET PO SCH (12:08)
[2020-03-03] MEDS: Gabapentin 300 MG CAPSULE PO SCH ×3 (12:08→21:55)
[2020-03-03] MEDS: Apixaban 5 MG TABLET PO SCH ×2 (12:09→21:55)
[2020-03-03] MEDS: Furosemide 40 MG TABLET PO SCH (12:09)
[2020-03-03] MEDS: Fenofibrate 54 MG TABLET PO SCH (12:09)
[2020-03-03] MEDS ORDERED: Azithromycin 500 MG in 0.9 % Sodium Chloride 250 ML IVPB SCH (21:00)
[2020-03-04] MEDS: Ipratropium/Albuterol Neb 3 ML IH SCH ×3 (03:51→15:37)
[2020-03-04 05:26] LABS: Hematocrit 36.8 % (37.5-50.1); Mean Corpuscular HGB Conc 29.9 g/dL (31.6-35.5); Mean Corpuscular Hemoglobin 28.2 pg (28.0-33.3); Mean Corpuscular Volume 94.4 fL (83.0-100.0); Mean Platelet Volume 9.5 fL (9.4-12.4); Platelet Count 173 K/mcL (140-400)
[2020-03-04 05:28] LABS: White Blood Count 10.5 K/mcL (4.3-11.1)
[2020-03-04 05:29] LABS: INR 1.4; Prothrombin Time 16.3 Seconds (9.4-12.1)
[2020-03-04 05:49] LABS: Calcium 9.3 mg/dL (8.6-10.3); Potassium 3.7 mEq/L (3.5-5.1)
[2020-03-04] MEDS: Fenofibrate 54 MG TABLET PO SCH (08:10)
[2020-03-04] MEDS: predniSONE 20 MG TABLET PO SCH (08:10)
[2020-03-04] MEDS: Metoprolol XL (24 HR) Succ 50 MG TAB.ER.24H PO SCH (08:11)
[2020-03-04] MEDS: Furosemide 40 MG TABLET PO SCH (08:11)
[2020-03-04] MEDS: Gabapentin 300 MG CAPSULE PO SCH ×2 (08:11→15:55)
[2020-03-04] MEDS: Apixaban 5 MG TABLET PO SCH (08:11)
[2020-03-04] MEDS: cefTRIAXone 1,000 MG in Water for inj. (sterile) 10 ML IVP SCH (08:11)
[2020-03-04] MEDS ORDERED: DilTIAZem CD (24hr) 120 MG CAP.ER.24H PO SCH (09:00)
[2020-03-04] MEDS: Budesonide/Formoterol 160/4.5 1 PUFF INH IH SCH (10:01)
[2020-03-04 11:00] VITALS: BP 122/66
== END 2020-03-04 17:52 | disposition home health service (06) ==
LOC: 2ANU → SUATTDRO 03-03 01:17
PROVIDERS: ADMIT Student in an Organized Health Care Education/Training Program; ATTEND Internal Medicine

== ENCOUNTER 2020-11-22 18:36 | Observation (INO) ==
[2020-11-22] MEDS ORDERED: Ondansetron 4 MG/2 ML VIAL IVP PRN (22:57)
[2020-11-22] MEDS ORDERED: Naloxone 0.4 MG/ML INJ IVP PRN (22:57)
[2020-11-22] MEDS ORDERED: Melatonin 3 MG TABLET PO PRN (22:57)
[2020-11-22] MEDS ORDERED: Acetaminophen 325 MG TABLET PO PRN (22:57)
[2020-11-23] MEDS: *HR* HYDROcodone/Acet 5/325 mg TABLET PO PRN ×2 (00:15→11:41)
[2020-11-23 02:48] LABS: Basophils % 0.2 %; Eosinophils % 0.2 %; Hematocrit 47.6 % (37.5-50.1); Hemoglobin 14.8 g/dL (12.9-16.9); Immature Granulocytes % 0.3 % (0-4); Lymphocytes # 1.1 K/mcL (0.6-4.6); Lymphocytes % 9.7 %; Mean Corpuscular HGB Conc 31.1 g/dL (31.6-35.5); Mean Corpuscular Hemoglobin 30.8 pg (28.0-33.3); Mean Corpuscular Volume 99.2 fL (83.0-100.0); Mean Platelet Volume 9.9 fL (9.4-12.4); Monocytes # 0.4 K/mcL (0.0-1.3); Monocytes % 3.7 %; Platelet Count 208 K/mcL (140-400); Red Cell Distribution Width 14.3 % (11.5-14.5); Segmented Neutrophils % 85.9 %; White Blood Count 11.6 K/mcL (4.3-11.1)
[2020-11-23 02:56] LABS: INR 1.5; Prothrombin Time 17.3 Seconds (9.4-12.1)
[2020-11-23 03:20] LABS: Albumin 4.3 g/dL (3.5-5.7); Albumin/Globulin Ratio 1.4 (1.1-2.2); Bilirubin,Total 0.4 mg/dL (0.3-1.0); Calcium 9.6 mg/dL (8.6-10.3); Chol/HDL Ratio 3.2 (0-4.9); Globulin 3.1 g/dL (2.4-3.5); Phosphorous 3.9 mg/dL (2.7-4.5); Potassium 4.1 mEq/L (3.5-5.1); Total Protein 7.4 g/dL (6.4-8.9); Troponin I 0.25 ng/mL (< 0.04)
[2020-11-23] MEDS ORDERED: Ipratropium/Albuterol Neb 3 ML IH PRN (11:25)
[2020-11-23] MEDS: Metoprolol XL (24 HR) Succ 50 MG TAB.ER.24H PO SCH (12:14)
[2020-11-23] MEDS: Aspirin 81 MG TAB.CHEW PO SCH (12:14)
[2020-11-23] MEDS: tiZANidine 4 MG TABLET PO PRN ×2 (12:15→20:48)
[2020-11-23] MEDS: DilTIAZem CD (24hr) 180 MG CAP.ER.24H PO SCH (12:15)
[2020-11-23] MEDS: Gabapentin 300 MG CAPSULE PO SCH ×2 (15:04→20:48)
[2020-11-23] MEDS: Apixaban 5 MG TABLET PO SCH (20:48)
[2020-11-24 02:22] LABS: Basophils # 0.1 K/mcL (0.0-0.2); Basophils % 0.6 %; Eosinophils # 0.1 K/mcL (0.0-0.6); Eosinophils % 1.1 %; Hematocrit 45.8 % (37.5-50.1); Hemoglobin 14.2 g/dL (12.9-16.9); Immature Granulocytes % 0.3 % (0-4); Lymphocytes # 1.4 K/mcL (0.6-4.6); Mean Corpuscular Hemoglobin 30.7 pg (28.0-33.3); Mean Corpuscular Volume 98.9 fL (83.0-100.0); Mean Platelet Volume 9.9 fL (9.4-12.4); Monocytes # 0.7 K/mcL (0.0-1.3); Neutrophils # 7.2 K/mcL (1.6-8.9); Platelet Count 179 K/mcL (140-400); Red Blood Count 4.63 M/mcL (4.19-5.50); Red Cell Distribution Width 14.2 % (11.5-14.5); White Blood Count 9.5 K/mcL (4.3-11.1)
[2020-11-24 02:40] LABS: Calcium 9.8 mg/dL (8.6-10.3); Potassium 4.6 mEq/L (3.5-5.1)
[2020-11-24 07:30] VITALS: BP 129/78
[2020-11-24] MEDS: Gabapentin 300 MG CAPSULE PO SCH (08:07)
[2020-11-24] MEDS: Metoprolol XL (24 HR) Succ 50 MG TAB.ER.24H PO SCH (08:08)
[2020-11-24] MEDS: Apixaban 5 MG TABLET PO SCH (08:08)
[2020-11-24] MEDS: DilTIAZem CD (24hr) 180 MG CAP.ER.24H PO SCH (08:08)
[2020-11-24] MEDS: Aspirin 81 MG TAB.CHEW PO SCH (08:09)
[2020-11-24] MEDS ORDERED: Fenofibrate 54 MG TABLET PO SCH ×2 (09:00)
[2020-11-24] MEDS ORDERED: Cyanocobalamin (B-12) 1,000 MCG TABLET PO SCH (09:00)
[2020-11-28] MEDS ORDERED: Ergocalciferol (VIT D2) 50,000 UNIT (1.25MG) CAP PO SCH (09:00)
== END 2020-11-24 13:04 | disposition home health service (06) ==
LOC: 2ANU
PROVIDERS: ADMIT Internal Medicine; ATTEND Internal Medicine

== ENCOUNTER 2021-03-15 12:33 | Inpatient (IN) ==
[~2021-03-15 12:33] MED LIST: ceFAZolin 1,000 MG, Sodium Chloride IRRigation 1,000 ML IR ONE
[2021-03-15] MEDS ORDERED: Metoclopramide 10 MG/2 ML VIAL IVP PRN (13:01)
[2021-03-15] MEDS ORDERED: Famotidine 20 MG/2 ML VIAL IVP ONE (13:01)
[2021-03-15] MEDS ORDERED: Ondansetron 4 MG/2 ML VIAL IVP PRN ×2 (13:01→18:48)
[2021-03-15] MEDS ORDERED: *HR* FentaNYL (PF) 100 MCG/2 ML VIAL IVP PRN (13:01)
[2021-03-15] MEDS ORDERED: *HR* HYDROmorphone PF 0.5 MG/0.5 ML SYRINGE IVP PRN (13:01)
[2021-03-15] MEDS ORDERED: Ketorolac 15 MG/ML VIAL IVP PRN (13:01)
[2021-03-15] MEDS ORDERED: Acetaminophen IV 1,000 MG/100 ML BAG IVPB ONE (13:05)
[2021-03-15] MEDS ORDERED: Clindamycin 900 MG/50 ML 900 MG/50 ML IV.SOLN IVPB ONE (13:06)
[2021-03-15] MEDS ORDERED: Ringers Solution, Lactated 1,000 ML IVC SCH (13:15)
[2021-03-15] MEDS ORDERED: Albuterol 2.5 MG/3 ML NEBULIZER IH ONE (13:34)
[2021-03-15] MEDS ORDERED: Albumin Human 5% 25.0 GM/500 ML IV.SOLN ONE (13:36)
[2021-03-15] MEDS ORDERED: *HR* Propofol 200 MG/20 ML VIAL IVP ONE (13:37)
[2021-03-15] MEDS ORDERED: Ondansetron 4 MG/2 ML VIAL ONE (13:38)
[2021-03-15] MEDS ORDERED: Lidocaine -MPF 2% 2 ML VIAL ONE (13:38)
[2021-03-15] MEDS ORDERED: *HR* Rocuronium Bromide 50 MG/5 ML VIAL ONE ×2 (13:38→15:39)
[2021-03-15] MEDS ORDERED: Heparin 1,000 UNITS/500 mL 500 ML ONE (13:40)
[2021-03-15] MEDS ORDERED: *HR* FentaNYL (PF) 100 MCG/2 ML VIAL ONE ×3 (13:40→18:13)
[2021-03-15] MEDS ORDERED: *HR* Norepinephrine 4 MG/4 ML VIAL IVC ONE (14:18)
[2021-03-15] MEDS ORDERED: *HR* Magnesium Sulfate 1 GM/2 ML VIAL ONE (15:25)
[2021-03-15] MEDS ORDERED: Sugammadex Sodium 200 MG/2 ML VIAL IV ONE (18:07)
[2021-03-15] MEDS ORDERED: *HR* Metoprolol 5 MG/5 ML VIAL IVP PRN (18:48)
[2021-03-15] MEDS ORDERED: *HR* HYDROmorphone (PF) 1 MG/ML SYRINGE IVP PRN (18:52)
[2021-03-15] MEDS ORDERED: *HR* Labetalol 20 MG/4 ML SYRINGE IVP ONE (19:06)
[2021-03-15] MEDS: *HR* Labetalol 20 MG/4 ML SYRINGE IVP PRN ×2 (19:07→19:43)
[2021-03-15] MEDS: 0.9 % Sodium Chloride 1,000 ML IVC SCH (22:06)
[2021-03-15] MEDS: Gabapentin 300 MG CAPSULE PO SCH (22:06)
[2021-03-15] MEDS: CeFAZolin 2,000 MG/120 ML BAG IVPB SCH (23:47)
[2021-03-15] MEDS: Acetaminophen IV 1,000 MG/100 ML BAG IVPB SCH (23:47)
[2021-03-16] MEDS: Acetaminophen IV 1,000 MG/100 ML BAG IVPB SCH ×5 (06:26→23:10)
[2021-03-16 07:14] LABS: Hematocrit 38.8 % (37.5-50.1); Hemoglobin 12.4 g/dL (12.9-16.9); Mean Corpuscular Hemoglobin 32.9 pg (28.0-33.3); Mean Corpuscular Volume 102.9 fL (83.0-100.0); Mean Platelet Volume 9.5 fL (9.4-12.4); Platelet Count 231 K/mcL (140-400); Red Blood Count 3.77 M/mcL (4.19-5.50); White Blood Count 17.4 K/mcL (4.3-11.1)
[2021-03-16 08:07] LABS: Albumin 3.7 g/dL (3.5-5.7); Albumin/Globulin Ratio 1.6 (1.1-2.2); Bilirubin,Total 0.6 mg/dL (0.3-1.0); Calcium 8.4 mg/dL (8.6-10.3); Globulin 2.3 g/dL (2.4-3.5); Potassium 5.5 mEq/L (3.5-5.1)
[2021-03-16] MEDS: 0.9 % Sodium Chloride 1,000 ML IVC SCH (09:10)
[2021-03-16] MEDS: CeFAZolin 2,000 MG/120 ML BAG IVPB SCH (09:10)
[2021-03-16] MEDS: Furosemide 40 MG TABLET PO SCH (09:11)
[2021-03-16] MEDS: Gabapentin 300 MG CAPSULE PO SCH ×3 (09:11→22:09)
[2021-03-16] MEDS: DilTIAZem CD (24hr) 180 MG CAP.ER.24H PO SCH (09:11)
[2021-03-16] MEDS: Metoprolol XL (24 HR) Succ 50 MG TAB.ER.24H PO SCH (09:11)
[2021-03-16] MEDS ORDERED: Ipratropium/Albuterol Neb 3 ML IH PRN (09:44)
[2021-03-16] MEDS: BuPROPion XL (24 HR) 150 MG TABLET PO SCH (16:04)
[2021-03-16] MEDS: tiZANidine 4 MG TABLET PO SCH ×3 (16:04→22:09)
[2021-03-16] MEDS: Cyanocobalamin (B-12) 1,000 MCG TABLET PO SCH (16:05)
[2021-03-16 17:49] LABS: Calcium 8.6 mg/dL (8.6-10.3); Magnesium 2.1 mg/dL (1.6-2.6)
[2021-03-16] MEDS ORDERED: Albumin 25% 25gram/100mL 25 GM/100 ML IV.SOLN IVPB ONE (22:11)
[2021-03-17] MEDS: 0.9 % Sodium Chloride 1,000 ML IVC SCH ×2 (03:20→07:39)
[2021-03-17] MEDS: Acetaminophen IV 1,000 MG/100 ML BAG IVPB SCH ×3 (05:29→19:32)
[2021-03-17 07:55] LABS: Mean Corpuscular HGB Conc 31.9 g/dL (31.6-35.5); Mean Corpuscular Hemoglobin 33.6 pg (28.0-33.3); Mean Corpuscular Volume 105.1 fL (83.0-100.0); Platelet Count 198 K/mcL (140-400); Red Blood Count 2.95 M/mcL (4.19-5.50); Red Cell Distribution Width 14.4 % (11.5-14.5); White Blood Count 13.2 K/mcL (4.3-11.1)
[2021-03-17 08:06] LABS: Hemoglobin 9.9 g/dL (12.9-16.9)
[2021-03-17 08:13] LABS: Calcium 8.5 mg/dL (8.6-10.3); Potassium 4.7 mEq/L (3.5-5.1)
[2021-03-17] MEDS: Gabapentin 300 MG CAPSULE PO SCH ×2 (09:14→21:28)
[2021-03-17] MEDS: tiZANidine 4 MG TABLET PO SCH (09:14)
[2021-03-17] MEDS: Metoprolol XL (24 HR) Succ 50 MG TAB.ER.24H PO SCH (09:14)
[2021-03-17] MEDS: BuPROPion XL (24 HR) 150 MG TABLET PO SCH (09:15)
[2021-03-17] MEDS: Furosemide 40 MG TABLET PO SCH (09:15)
[2021-03-17] MEDS: DilTIAZem CD (24hr) 180 MG CAP.ER.24H PO SCH (09:15)
[2021-03-17] MEDS: Aspirin 81 MG TAB.CHEW PO SCH (09:15)
[2021-03-17] MEDS: Cyanocobalamin (B-12) 1,000 MCG TABLET PO SCH (09:15)
[2021-03-17] MEDS ORDERED: Gabapentin 300 MG CAPSULE PO SCH (15:00)
[2021-03-17] MEDS ORDERED: 0.9 % Sodium Chloride 500 ML IVC ONE (15:24)
[2021-03-17 15:34] LABS: Uric Acid 8.9 mg/dL (2.3-7.6)
[2021-03-17] MEDS ORDERED: Ringers Solution, Lactated 250 ML IVC ONE (18:27)
[2021-03-17] MEDS ORDERED: Ringers Solution, Lactated 1,000 ML IVC ONE (18:27)
[2021-03-17 19:28] LABS: Hematocrit 30.3 % (37.5-50.1); Hemoglobin 9.4 g/dL (12.9-16.9); Mean Corpuscular Hemoglobin 32.5 pg (28.0-33.3); Mean Corpuscular Volume 104.8 fL (83.0-100.0); Platelet Count 180 K/mcL (140-400); Red Blood Count 2.89 M/mcL (4.19-5.50); Red Cell Distribution Width 14.3 % (11.5-14.5); White Blood Count 13.4 K/mcL (4.3-11.1)
[2021-03-17 19:55] LABS: Calcium 8.5 mg/dL (8.6-10.3); Magnesium 2.5 mg/dL (1.6-2.6); Potassium 4.7 mEq/L (3.5-5.1)
[2021-03-18] MEDS: Acetaminophen IV 1,000 MG/100 ML BAG IVPB SCH ×4 (00:17→18:09)
[2021-03-18 02:40] LABS: Basophils % 0.2 %; Eosinophils % 0.2 %; Hematocrit 28.6 % (37.5-50.1); Hemoglobin 9.1 g/dL (12.9-16.9); Immature Granulocytes % 0.8 % (0-4); Lymphocytes # 0.8 K/mcL (0.6-4.6); Lymphocytes % 6.2 %; Mean Corpuscular HGB Conc 31.8 g/dL (31.6-35.5); Mean Corpuscular Hemoglobin 33.3 pg (28.0-33.3); Mean Corpuscular Volume 104.8 fL (83.0-100.0); Mean Platelet Volume 9.8 fL (9.4-12.4); Monocytes # 0.9 K/mcL (0.0-1.3); Monocytes % 6.7 %; Neutrophils # 11.2 K/mcL (1.6-8.9); Platelet Count 184 K/mcL (140-400); Red Blood Count 2.73 M/mcL (4.19-5.50); Red Cell Distribution Width 14.2 % (11.5-14.5); Segmented Neutrophils % 85.9 %
[2021-03-18 03:04] LABS: Albumin 3.7 g/dL (3.5-5.7); Albumin/Globulin Ratio 1.6 (1.1-2.2); Bilirubin,Total 0.4 mg/dL (0.3-1.0); Calcium 8.5 mg/dL (8.6-10.3); Globulin 2.3 g/dL (2.4-3.5); Potassium 4.8 mEq/L (3.5-5.1)
[2021-03-18 03:07] LABS: Troponin I 0.13 ng/mL (< 0.04)
[2021-03-18] MEDS: 0.9 % Sodium Chloride 1,000 ML IVC SCH ×2 (08:21→08:23)
[2021-03-18] MEDS: Gabapentin 300 MG CAPSULE PO SCH ×2 (08:21→20:16)
[2021-03-18] MEDS: BuPROPion XL (24 HR) 150 MG TABLET PO SCH (08:21)
[2021-03-18] MEDS: Cyanocobalamin (B-12) 1,000 MCG TABLET PO SCH (08:21)
[2021-03-18] MEDS: Aspirin 81 MG TAB.CHEW PO SCH (08:22)
[2021-03-18] MEDS: Metoprolol XL (24 HR) Succ 50 MG TAB.ER.24H PO SCH (08:22)
[2021-03-18] MEDS ORDERED: Perflutren Lipid Microsphere 1.3 ML in 0.9 % Sodium Chloride 8.7 ML IVP PRN (15:29)
[2021-03-18 16:29] LABS: Bacteria,Urine Few per hpf (None-Few); Bilirubin,Urine Negative (Negative); Blood,Urine Small (Negative); Clarity,Urine Clear (Clear); Color,Urine Light-Yellow (Yellow); Glucose,Urine (UA) 200 mg/dL (Normal); Ketones,Urine Negative (Negative); Leukocyte Esterase,Urine Negative (Negative); Mucus,Urine Few per lpf (None-Few); Nitrite,Urine Negative (Negative); Protein,Urine 30 mg/dL (Neg-Trace); Specific Gravity,Urine 1.021 (1.010-1.025); Squamous Epithelial Cell,Urine Few per hpf (None-Few); Urobilinogen,Urine Normal (Normal); WBC,Urine 0-3 per hpf (0-3)
[2021-03-18 16:38] LABS: Creatinine,Urine 139 mg/dL; Sodium, Urine < 10.0 mEq/L
[2021-03-18 17:01] LABS: Calcium 8.8 mg/dL (8.6-10.3); Potassium 5.2 mEq/L (3.5-5.1)
[2021-03-18 18:32] LABS: Basophils % 0.2 %; Eosinophils % 0.2 %; Hematocrit 30.2 % (37.5-50.1); Hemoglobin 9.2 g/dL (12.9-16.9); Immature Granulocytes % 0.9 % (0-4); Lymphocytes # 0.7 K/mcL (0.6-4.6); Lymphocytes % 4.9 %; Mean Corpuscular HGB Conc 30.5 g/dL (31.6-35.5); Mean Corpuscular Volume 108.2 fL (83.0-100.0); Mean Platelet Volume 9.7 fL (9.4-12.4); Monocytes # 1.1 K/mcL (0.0-1.3); Monocytes % 7.3 %; Neutrophils # 12.9 K/mcL (1.6-8.9); Nucleated Red Blood Cells 0.1 /100 WBC (0); Platelet Count 195 K/mcL (140-400); Red Blood Count 2.79 M/mcL (4.19-5.50); Red Cell Distribution Width 14.2 % (11.5-14.5); Segmented Neutrophils % 86.5 %; White Blood Count 14.9 K/mcL (4.3-11.1)
[2021-03-18] MEDS ORDERED: DilTIAZem CD (24hr) 180 MG CAP.ER.24H PO SCH ×2 (21:00)
[2021-03-19] MEDS: Acetaminophen IV 1,000 MG/100 ML BAG IVPB SCH ×2 (01:05→05:46)
[2021-03-19 05:39] LABS: Basophils % 0.3 %; Eosinophils % 0.4 %; Hematocrit 29.1 % (37.5-50.1); Immature Granulocytes % 0.5 % (0-4); Lymphocytes # 0.7 K/mcL (0.6-4.6); Mean Corpuscular HGB Conc 30.9 g/dL (31.6-35.5); Mean Corpuscular Hemoglobin 33.1 pg (28.0-33.3); Mean Platelet Volume 9.7 fL (9.4-12.4); Monocytes # 0.7 K/mcL (0.0-1.3); Monocytes % 6.1 %; Neutrophils # 9.5 K/mcL (1.6-8.9); Platelet Count 220 K/mcL (140-400); Red Blood Count 2.72 M/mcL (4.19-5.50); Red Cell Distribution Width 14.3 % (11.5-14.5); Segmented Neutrophils % 86.7 %
[2021-03-19 05:56] LABS: Albumin 3.7 g/dL (3.5-5.7); Albumin/Globulin Ratio 1.4 (1.1-2.2); Bilirubin,Total 0.4 mg/dL (0.3-1.0); Calcium 8.9 mg/dL (8.6-10.3); Globulin 2.7 g/dL (2.4-3.5); Potassium 4.8 mEq/L (3.5-5.1); Total Protein 6.4 g/dL (6.4-8.9)
[2021-03-19] MEDS: Cyanocobalamin (B-12) 1,000 MCG TABLET PO SCH (09:36)
[2021-03-19] MEDS: BuPROPion XL (24 HR) 150 MG TABLET PO SCH (09:36)
[2021-03-19] MEDS: Gabapentin 300 MG CAPSULE PO SCH ×2 (09:36→20:08)
[2021-03-19] MEDS: Aspirin 81 MG TAB.CHEW PO SCH (09:37)
[2021-03-19] MEDS: Metoprolol XL (24 HR) Succ 50 MG TAB.ER.24H PO SCH (09:38)
[2021-03-19] MEDS: Metoprolol XL (24 HR) Succ 25 MG TAB.ER.24H PO SCH (09:38)
[2021-03-19 13:05] LABS: ABG Base Excess 4 mEq/L (-2 to 3); ABG HCO3 32 mEq/L (21-27); ABG Oxygen Saturation 97 % (95-98); ABG PCO2 72 mmHg (35-45); ABG PH 7.26 pH Units (7.32-7.45); ABG PO2 104 mmHg (85-104); ABG TCO2 34 mEq/L (20-26)
[2021-03-19] MEDS: *HR* OxyCODONE/APAP 5/325 TABLET PO PRN ×3 (15:35→23:35)
[2021-03-19 18:09] LABS: ABG Base Excess 5 mEq/L (-2 to 3); ABG HCO3 34 mEq/L (21-27); ABG Oxygen Saturation 98 % (95-98); ABG PCO2 74 mmHg (35-45); ABG PH 7.27 pH Units (7.32-7.45); ABG PO2 118 mmHg (85-104); ABG TCO2 36 mEq/L (20-26); Blood Gas Modality BiLevel
[2021-03-19] MEDS: Apixaban 5 MG TABLET PO SCH (20:08)
[2021-03-19] MEDS ORDERED: *HR* Metoprolol 5 MG/5 ML VIAL IVP ONE (23:44)
[2021-03-20 02:37] LABS: Basophils % 0.2 %; Eosinophils # 0.1 K/mcL (0.0-0.6); Eosinophils % 0.6 %; Hematocrit 31.3 % (37.5-50.1); Hemoglobin 9.6 g/dL (12.9-16.9); Immature Granulocytes % 0.6 % (0-4); Lymphocytes # 0.7 K/mcL (0.6-4.6); Lymphocytes % 5.9 %; Mean Corpuscular HGB Conc 30.7 g/dL (31.6-35.5); Mean Corpuscular Hemoglobin 33.1 pg (28.0-33.3); Mean Corpuscular Volume 107.9 fL (83.0-100.0); Mean Platelet Volume 9.9 fL (9.4-12.4); Monocytes # 0.6 K/mcL (0.0-1.3); Neutrophils # 9.7 K/mcL (1.6-8.9); Nucleated Red Blood Cells 0.2 /100 WBC (0); Platelet Count 197 K/mcL (140-400); Red Cell Distribution Width 14.4 % (11.5-14.5); Segmented Neutrophils % 87.7 %; White Blood Count 11.1 K/mcL (4.3-11.1)
[2021-03-20 02:56] LABS: Alanine Aminotransferase 7 Units/L (7-52); Albumin 3.8 g/dL (3.5-5.7); Albumin/Globulin Ratio 1.3 (1.1-2.2); Alkaline Phosphatase 36 Units/L (34-104); Aspartate Amino Transferase 21 Units/L (13-39); BUN/Creatinine Ratio 25 (6-26); Bilirubin,Total 0.4 mg/dL (0.3-1.0); Blood Urea Nitrogen 34 mg/dL (8-23); Calcium 9.3 mg/dL (8.6-10.3); Carbon Dioxide 29 mEq/L (23-29); Chloride 111 mEq/L (98-107); Globulin 2.9 g/dL (2.4-3.5); Glucose 103 mg/dL (70-105); Osmolality,Calculated 310 (280-300); Potassium 5.3 mEq/L (3.5-5.1); Sodium 146 mEq/L (136-145); Total Protein 6.7 g/dL (6.4-8.9); eGFR For African Americans > 60 (> 60); eGFR For Non-African Americans 51 (> 60)
[2021-03-20] MEDS: *HR* OxyCODONE/APAP 5/325 TABLET PO PRN (03:35)
[2021-03-20] MEDS: Aspirin 81 MG TAB.CHEW PO SCH (07:54)
[2021-03-20] MEDS: Metoprolol XL (24 HR) Succ 25 MG TAB.ER.24H PO SCH (07:54)
[2021-03-20] MEDS: Cyanocobalamin (B-12) 1,000 MCG TABLET PO SCH (07:54)
[2021-03-20] MEDS: Apixaban 5 MG TABLET PO SCH ×2 (07:54→20:51)
[2021-03-20] MEDS: BuPROPion XL (24 HR) 150 MG TABLET PO SCH (07:54)
[2021-03-20] MEDS: Gabapentin 300 MG CAPSULE PO SCH ×2 (07:54→20:51)
[2021-03-20] MEDS: *HR* Metoprolol 5 MG/5 ML VIAL IVP SCH ×4 (10:19→22:46)
[2021-03-20] MEDS ORDERED: Acetaminophen 650 MG RECTAL SUPP RC PRN ×2 (10:35→17:41)
[2021-03-20 11:56] LABS: ABG Base Excess 7 mEq/L (-2 to 3); ABG HCO3 34 mEq/L (21-27); ABG Oxygen Saturation 96 % (95-98); ABG PCO2 59 mmHg (35-45); ABG PH 7.36 pH Units (7.32-7.45); ABG PO2 89 mmHg (85-104); ABG TCO2 36 mEq/L (20-26); Blood Gas VT 18 cc
[2021-03-20] MEDS ORDERED: Cefepime HCl 2,000 MG in 0.9 % Sodium Chloride Mini Bag 100 ML IVPB SCH (12:00)
[2021-03-20] MEDS ORDERED: Vancomycin 2,000 MG/520 ML IV.SOLN IVPB ONE (13:00)
[2021-03-20] MEDS ORDERED: DilTIAZem 50 MG in 0.9 % Sodium Chloride 40 ML IVC SCH ×2 (15:30→15:36)
[2021-03-20 16:59] LABS: Adenovirus Not Detected (Not Detect); Coronavirus 229E Not Detected (Not Detect); Coronavirus HKU1 Not Detected (Not Detect); Coronavirus NL63 Not Detected (Not Detect); Coronavirus OC43 Not Detected (Not Detect); Human Metapneumovirus Not Detected (Not Detect); Human Rhinovirus/Enterovirus Not Detected (Not Detect); Influenza A Subtype 2009 H1 Not Detected (Not Detect); SARS-CoV-2 Not Detected (Not Detect)
[2021-03-20 17:00] LABS: Bordetella Pertussis Not Detected (Not Detect); Chlamydophila pneumoniae Not Detected (Not Detect); Influenza B Not Detected (Not Detect); Mycoplasma pneumoniae Not Detected (Not Detect); Parainfluenza Virus 1 Not Detected (Not Detect); Parainfluenza Virus 2 Not Detected (Not Detect); Parainfluenza Virus 3 Not Detected (Not Detect); Parainfluenza Virus 4 Not Detected (Not Detect); Respiratory Syncytial Virus Not Detected (Not Detect)
[2021-03-20] MEDS ORDERED: Ondansetron 4 MG/2 ML VIAL IVP PRN (17:41)
[2021-03-20] MEDS ORDERED: *HR* OxyCODONE/APAP 5/325 TABLET PO PRN (17:41)
[2021-03-20] MEDS ORDERED: Ipratropium/Albuterol Neb 3 ML IH PRN (17:41)
[2021-03-20] MEDS ORDERED: tiZANidine 4 MG TABLET PO SCH (21:00)
[2021-03-20] MEDS: DilTIAZem 50 MG in 0.9 % Sodium Chloride 40 ML IVC SCH (21:34)
[2021-03-20 23:28] LABS: ABG Base Excess 8 mEq/L (-2 to 3); ABG HCO3 34 mEq/L (21-27); ABG Oxygen Saturation 92 % (95-98); ABG PCO2 58 mmHg (35-45); ABG PH 7.38 pH Units (7.32-7.45); ABG PO2 66 mmHg (85-104); ABG TCO2 36 mEq/L (20-26)
[2021-03-21] MEDS ORDERED: *HR* Metoprolol 5 MG/5 ML VIAL IVP ONE (00:11)
[2021-03-21] MEDS: Cefepime HCl 2,000 MG in 0.9 % Sodium Chloride Mini Bag 100 ML IVPB SCH ×3 (00:17→23:30)
[2021-03-21] MEDS: DilTIAZem 50 MG in 0.9 % Sodium Chloride 40 ML IVC SCH ×2 (00:30→04:52)
[2021-03-21] MEDS ORDERED: Morphine Sulfate 2 MG/ML SYRINGE IVP ONE (01:26)
[2021-03-21] MEDS ORDERED: Amiodarone Premix 150 MG/100 ML BAG IVPB ONE (03:23)
[2021-03-21] MEDS ORDERED: Amiodarone Premix 360 MG/200 ML BAG IVC ONE (03:23)
[2021-03-21 04:51] LABS: ABG Base Excess 9 mEq/L (-2 to 3); ABG HCO3 35 mEq/L (21-27); ABG Oxygen Saturation 88 % (95-98); ABG PCO2 62 mmHg (35-45); ABG PH 7.37 pH Units (7.32-7.45); ABG PO2 59 mmHg (85-104); ABG TCO2 37 mEq/L (20-26); Blood Gas FiO2 3.5 (1-15=lpm or21-100=%)
[2021-03-21] MEDS: *HR* Metoprolol 5 MG/5 ML VIAL IVP SCH ×4 (05:37→23:30)
[2021-03-21 06:12] LABS: Basophils % 0.2 %; Eosinophils # 0.1 K/mcL (0.0-0.6); Eosinophils % 0.5 %; Hematocrit 31.6 % (37.5-50.1); Hemoglobin 9.8 g/dL (12.9-16.9); Immature Granulocytes % 0.6 % (0-4); Lymphocytes # 0.9 K/mcL (0.6-4.6); Mean Corpuscular Hemoglobin 33.2 pg (28.0-33.3); Mean Corpuscular Volume 107.1 fL (83.0-100.0); Mean Platelet Volume 9.4 fL (9.4-12.4); Monocytes # 0.9 K/mcL (0.0-1.3); Monocytes % 7.4 %; Neutrophils # 10.4 K/mcL (1.6-8.9); Nucleated Red Blood Cells 0.2 /100 WBC (0); Platelet Count 273 K/mcL (140-400); Red Blood Count 2.95 M/mcL (4.19-5.50); Red Cell Distribution Width 14.4 % (11.5-14.5); Segmented Neutrophils % 84.3 %; White Blood Count 12.4 K/mcL (4.3-11.1)
[2021-03-21 06:35] LABS: BUN/Creatinine Ratio 24 (6-26); Blood Urea Nitrogen 30 mg/dL (8-23); Carbon Dioxide 32 mEq/L (23-29); Chloride 113 mEq/L (98-107); Glucose 133 mg/dL (70-105); Osmolality,Calculated 320 (280-300); Potassium 4.6 mEq/L (3.5-5.1); Sodium 151 mEq/L (136-145); eGFR For African Americans > 60 (> 60); eGFR For Non-African Americans 55 (> 60)
[2021-03-21] MEDS: D5% in Water 1,000 ML IVC SCH (08:41)
[2021-03-21] MEDS: Aspirin 81 MG TAB.CHEW PO SCH (08:42)
[2021-03-21] MEDS: Apixaban 5 MG TABLET PO SCH (08:42)
[2021-03-21] MEDS: Cyanocobalamin (B-12) 1,000 MCG TABLET PO SCH (08:43)
[2021-03-21] MEDS: BuPROPion XL (24 HR) 150 MG TABLET PO SCH (08:43)
[2021-03-21] MEDS: Gabapentin 300 MG CAPSULE PO SCH ×2 (08:43→20:24)
[2021-03-21] MEDS ORDERED: Metoprolol XL (24 HR) Succ 25 MG TAB.ER.24H PO SCH (09:00)
[2021-03-21] MEDS ORDERED: Furosemide 40 MG TABLET PO SCH (09:00)
[2021-03-21] MEDS ORDERED: Amiodarone Premix 360 MG/200 ML BAG IVC SCH (09:24)
[2021-03-21 10:09] LABS: Calcium 9.1 mg/dL (8.6-10.3)
[2021-03-21] MEDS ORDERED: *HR* Heparin 5,000 UNIT/ML VIAL IVP PRN ×2 (11:40)
[2021-03-21] MEDS ORDERED: Heparin 25,000UNIT/250ML 1/2NS 25,000 UNIT/250 ML IV.SOLN IVC SCH (11:45)
[2021-03-21 14:11] LABS: BUN/Creatinine Ratio 22 (6-26); Blood Urea Nitrogen 28 mg/dL (8-23); Calcium 9.3 mg/dL (8.6-10.3); Carbon Dioxide 32 mEq/L (23-29); Chloride 112 mEq/L (98-107); Glucose 155 mg/dL (70-105); Osmolality,Calculated 321 (280-300); Potassium 4.9 mEq/L (3.5-5.1); Sodium 151 mEq/L (136-145); eGFR For African Americans > 60 (> 60); eGFR For Non-African Americans 54 (> 60)
[2021-03-21] MEDS: Heparin 25,000UNIT/250ML 1/2NS 25,000 UNIT/250 ML IV.SOLN IVC SCH (15:23)
[2021-03-21] MEDS: *HR* Digoxin 0.5 MG/2 ML AMPUL IVP ONE ×2 (15:24→15:29)
[2021-03-21] MEDS: Vancomycin 1,750 MG/517.5 ML IV.SOLN IVPB SCH (15:24)
[2021-03-21] MEDS ORDERED: Vancomycin 1,750 MG/517.5 ML IV.SOLN IVPB SCH (16:00)
[2021-03-21] MEDS ORDERED: Lidocaine -MPF 1% 5 ML AMPUL INFILT ONE (17:15)
[2021-03-21 22:49] LABS: Activated Partial Thrombo Time 67.9 Seconds (26.0-36.0)
[2021-03-21] MEDS: *HR* Digoxin 0.5 MG/2 ML AMPUL IVP SCH (23:30)
[2021-03-22 00:45] LABS: ABG Base Excess 8 mEq/L (-2 to 3); ABG HCO3 36 mEq/L (21-27); ABG Oxygen Saturation 94 % (95-98); ABG PCO2 68 mmHg (35-45); ABG PH 7.33 pH Units (7.32-7.45); ABG PO2 81 mmHg (85-104); ABG TCO2 38 mEq/L (20-26); Blood Gas VT 525 cc
[2021-03-22] MEDS: D5% in Water 1,000 ML IVC SCH ×2 (01:25→17:54)
[2021-03-22] MEDS: Heparin 25,000UNIT/250ML 1/2NS 25,000 UNIT/250 ML IV.SOLN IVC SCH ×2 (03:00→17:52)
[2021-03-22] MEDS: DilTIAZem 50 MG in 0.9 % Sodium Chloride 40 ML IVC SCH (04:47)
[2021-03-22] MEDS: *HR* Digoxin 0.5 MG/2 ML AMPUL IVP SCH (05:36)
[2021-03-22] MEDS: *HR* Metoprolol 5 MG/5 ML VIAL IVP SCH ×2 (05:36→13:23)
[2021-03-22 06:57] LABS: BUN/Creatinine Ratio 22 (6-26); Blood Urea Nitrogen 26 mg/dL (8-23); Carbon Dioxide 35 mEq/L (23-29); Chloride 113 mEq/L (98-107); Glucose 120 mg/dL (70-105); Osmolality,Calculated 318 (280-300); Potassium 4.3 mEq/L (3.5-5.1); Sodium 151 mEq/L (136-145); eGFR For African Americans > 60 (> 60); eGFR For Non-African Americans > 60 (> 60)
[2021-03-22] MEDS: Aspirin 81 MG TAB.CHEW PO SCH (12:01)
[2021-03-22] MEDS: Cyanocobalamin (B-12) 1,000 MCG TABLET PO SCH (12:02)
[2021-03-22] MEDS: Gabapentin 300 MG CAPSULE PO SCH ×2 (12:02→19:58)
[2021-03-22] MEDS: BuPROPion XL (24 HR) 150 MG TABLET PO SCH (12:03)
[2021-03-22] MEDS: Cefepime HCl 2,000 MG in 0.9 % Sodium Chloride Mini Bag 100 ML IVPB SCH (12:30)
[2021-03-22 12:35] LABS: Basophils # 0.1 K/mcL (0.0-0.2); Basophils % 0.5 %; Eosinophils # 0.3 K/mcL (0.0-0.6); Eosinophils % 2.3 %; Hematocrit 31.5 % (37.5-50.1); Hemoglobin 9.3 g/dL (12.9-16.9); Immature Granulocytes % 0.5 % (0-4); Lymphocytes # 1.1 K/mcL (0.6-4.6); Lymphocytes % 9.7 %; Mean Corpuscular HGB Conc 29.5 g/dL (31.6-35.5); Mean Corpuscular Hemoglobin 32.6 pg (28.0-33.3); Mean Corpuscular Volume 110.5 fL (83.0-100.0); Monocytes # 0.7 K/mcL (0.0-1.3); Nucleated Red Blood Cells 0.2 /100 WBC (0); Platelet Count 265 K/mcL (140-400); Red Blood Count 2.85 M/mcL (4.19-5.50); Red Cell Distribution Width 14.5 % (11.5-14.5); White Blood Count 11.1 K/mcL (4.3-11.1)
[2021-03-22] MEDS: Vancomycin 1,750 MG/517.5 ML IV.SOLN IVPB SCH (16:58)
[2021-03-22 18:46] LABS: Macrocytosis Present (Not Present); Platelet Estimate Normal (Normal)
[2021-03-23] MEDS: Cefepime HCl 2,000 MG in 0.9 % Sodium Chloride Mini Bag 100 ML IVPB SCH ×3 (00:26→23:12)
[2021-03-23 04:26] LABS: Basophils % 0.3 %; Eosinophils # 0.4 K/mcL (0.0-0.6); Eosinophils % 3.2 %; Hemoglobin 9.5 g/dL (12.9-16.9); Immature Granulocytes % 0.7 % (0-4); Lymphocytes # 0.9 K/mcL (0.6-4.6); Lymphocytes % 7.6 %; Mean Corpuscular HGB Conc 29.7 g/dL (31.6-35.5); Mean Corpuscular Hemoglobin 32.9 pg (28.0-33.3); Mean Corpuscular Volume 110.7 fL (83.0-100.0); Mean Platelet Volume 9.8 fL (9.4-12.4); Monocytes # 0.6 K/mcL (0.0-1.3); Monocytes % 5.1 %; Neutrophils # 9.9 K/mcL (1.6-8.9); Nucleated Red Blood Cells 0.2 /100 WBC (0); Platelet Count 263 K/mcL (140-400); Red Blood Count 2.89 M/mcL (4.19-5.50); Red Cell Distribution Width 14.2 % (11.5-14.5); Segmented Neutrophils % 83.1 %; White Blood Count 11.9 K/mcL (4.3-11.1)
[2021-03-23 04:34] LABS: BUN/Creatinine Ratio 20 (6-26); Blood Urea Nitrogen 24 mg/dL (8-23); Carbon Dioxide 35 mEq/L (23-29); Chloride 110 mEq/L (98-107); Glucose 116 mg/dL (70-105); Potassium 4.3 mEq/L (3.5-5.1); Sodium 148 mEq/L (136-145); eGFR For African Americans > 60 (> 60); eGFR For Non-African Americans 59 (> 60)
[2021-03-23 04:35] LABS: Calcium 8.5 mg/dL (8.6-10.3); Osmolality,Calculated 311 (280-300)
[2021-03-23 05:07] LABS: Anisocytosis 1+ (Not Present); Hypochromasia Present (Not Present); Stomatocytes 1+ (Not Present)
[2021-03-23 05:08] LABS: Platelet Estimate Normal (Normal); Polychromasia 1+ (Not Present)
[2021-03-23] MEDS: DilTIAZem 50 MG in 0.9 % Sodium Chloride 40 ML IVC SCH (07:29)
[2021-03-23] MEDS: Aspirin 81 MG TAB.CHEW PO SCH (08:10)
[2021-03-23] MEDS: Gabapentin 300 MG CAPSULE PO SCH ×2 (08:10→21:06)
[2021-03-23] MEDS: BuPROPion XL (24 HR) 150 MG TABLET PO SCH (08:11)
[2021-03-23] MEDS: Cyanocobalamin (B-12) 1,000 MCG TABLET PO SCH (08:11)
[2021-03-23] MEDS: Metoprolol XL (24 HR) Succ 50 MG TAB.ER.24H PO SCH ×3 (09:08→21:06)
[2021-03-23] MEDS: Heparin 25,000UNIT/250ML 1/2NS 25,000 UNIT/250 ML IV.SOLN IVC SCH (12:11)
[2021-03-23] MEDS: D5% in Water 1,000 ML IVC SCH (12:26)
[2021-03-23] MEDS: DilTIAZem CD (24hr) 120 MG CAP.ER.24H PO SCH (21:06)
[2021-03-23] MEDS: Apixaban 5 MG TABLET PO SCH (23:12)
[2021-03-24 02:36] LABS: Basophils # 0.1 K/mcL (0.0-0.2); Basophils % 0.4 %; Eosinophils # 0.3 K/mcL (0.0-0.6); Eosinophils % 2.3 %; Hemoglobin 10.2 g/dL (12.9-16.9); Immature Granulocytes % 1.5 % (0-4); Lymphocytes # 0.9 K/mcL (0.6-4.6); Lymphocytes % 6.2 %; Mean Corpuscular Hemoglobin 32.7 pg (28.0-33.3); Mean Platelet Volume 10.3 fL (9.4-12.4); Monocytes # 0.5 K/mcL (0.0-1.3); Neutrophils # 11.7 K/mcL (1.6-8.9); Nucleated Red Blood Cells 0.4 /100 WBC (0); Platelet Count 267 K/mcL (140-400); Red Blood Count 3.12 M/mcL (4.19-5.50); Red Cell Distribution Width 14.3 % (11.5-14.5); Segmented Neutrophils % 85.6 %; White Blood Count 13.6 K/mcL (4.3-11.1)
[2021-03-24 02:55] LABS: BUN/Creatinine Ratio 22 (6-26); Blood Urea Nitrogen 25 mg/dL (8-23); Carbon Dioxide 29 mEq/L (23-29); Chloride 109 mEq/L (98-107); Glucose 112 mg/dL (70-105); Osmolality,Calculated 305 (280-300); Potassium 4.5 mEq/L (3.5-5.1); Sodium 145 mEq/L (136-145); eGFR For African Americans > 60 (> 60); eGFR For Non-African Americans > 60 (> 60)
[2021-03-24] MEDS: D5% in Water 1,000 ML IVC SCH ×2 (05:52→21:30)
[2021-03-24] MEDS: Gabapentin 300 MG CAPSULE PO SCH ×2 (08:21→21:30)
[2021-03-24] MEDS: Apixaban 5 MG TABLET PO SCH ×2 (08:21→21:30)
[2021-03-24] MEDS: Metoprolol XL (24 HR) Succ 50 MG TAB.ER.24H PO SCH ×2 (08:21→21:29)
[2021-03-24] MEDS: BuPROPion XL (24 HR) 150 MG TABLET PO SCH (08:21)
[2021-03-24] MEDS: DilTIAZem CD (24hr) 120 MG CAP.ER.24H PO SCH (08:21)
[2021-03-24] MEDS: Cyanocobalamin (B-12) 1,000 MCG TABLET PO SCH (08:21)
[2021-03-24] MEDS: Aspirin 81 MG TAB.CHEW PO SCH (08:21)
[2021-03-24] MEDS: Cefepime HCl 2,000 MG in 0.9 % Sodium Chloride Mini Bag 100 ML IVPB SCH (12:20)
[2021-03-24] MEDS: Heparin 25,000UNIT/250ML 1/2NS 25,000 UNIT/250 ML IV.SOLN IVC SCH (21:46)
[2021-03-25] MEDS: Cefepime HCl 2,000 MG in 0.9 % Sodium Chloride Mini Bag 100 ML IVPB SCH ×3 (00:47→23:33)
[2021-03-25] MEDS: Apixaban 5 MG TABLET PO SCH ×2 (09:21→20:24)
[2021-03-25] MEDS: BuPROPion XL (24 HR) 150 MG TABLET PO SCH (09:21)
[2021-03-25] MEDS: Metoprolol XL (24 HR) Succ 50 MG TAB.ER.24H PO SCH ×2 (09:21→20:24)
[2021-03-25] MEDS: DilTIAZem CD (24hr) 120 MG CAP.ER.24H PO SCH (09:21)
[2021-03-25] MEDS: Aspirin 81 MG TAB.CHEW PO SCH (09:21)
[2021-03-25] MEDS: Cyanocobalamin (B-12) 1,000 MCG TABLET PO SCH (09:21)
[2021-03-25] MEDS: Gabapentin 300 MG CAPSULE PO SCH ×2 (09:21→20:24)
[2021-03-25 10:53] LABS: Basophils # 0.1 K/mcL (0.0-0.2); Basophils % 0.5 %; Eosinophils # 0.3 K/mcL (0.0-0.6); Eosinophils % 1.9 %; Hematocrit 31.9 % (37.5-50.1); Immature Granulocytes % 1.7 % (0-4); Lymphocytes # 0.8 K/mcL (0.6-4.6); Lymphocytes % 5.8 %; Mean Corpuscular HGB Conc 31.3 g/dL (31.6-35.5); Mean Corpuscular Hemoglobin 33.9 pg (28.0-33.3); Mean Corpuscular Volume 108.1 fL (83.0-100.0); Mean Platelet Volume 9.8 fL (9.4-12.4); Monocytes # 0.6 K/mcL (0.0-1.3); Monocytes % 4.4 %; Neutrophils # 11.3 K/mcL (1.6-8.9); Nucleated Red Blood Cells 0.2 /100 WBC (0); Platelet Count 259 K/mcL (140-400); Red Blood Count 2.95 M/mcL (4.19-5.50); Red Cell Distribution Width 14.5 % (11.5-14.5); Segmented Neutrophils % 85.7 %; White Blood Count 13.2 K/mcL (4.3-11.1)
[2021-03-25 11:24] LABS: BUN/Creatinine Ratio 18 (6-26); Blood Urea Nitrogen 20 mg/dL (8-23); Calcium 8.9 mg/dL (8.6-10.3); Carbon Dioxide 32 mEq/L (23-29); Chloride 108 mEq/L (98-107); Glucose 136 mg/dL (70-105); Osmolality,Calculated 305 (280-300); Potassium 4.2 mEq/L (3.5-5.1); Sodium 145 mEq/L (136-145); eGFR For African Americans > 60 (> 60); eGFR For Non-African Americans > 60 (> 60)
[2021-03-25 12:40] LABS: Bilirubin,Urine Negative (Negative); Blood,Urine Moderate (Negative); Clarity,Urine Clear (Clear); Color,Urine Yellow (Yellow); Glucose,Urine (UA) 70 mg/dL (Normal); Ketones,Urine Negative (Negative); Leukocyte Esterase,Urine Negative (Negative); Mucus,Urine Few per lpf (None-Few); Nitrite,Urine Negative (Negative); Protein,Urine 70 mg/dL (Neg-Trace); RBC,Urine 50-100 per hpf (0-3); Specific Gravity,Urine 1.023 (1.010-1.025); Squamous Epithelial Cell,Urine Few per hpf (None-Few); Urobilinogen,Urine Normal (Normal)
[2021-03-25] MEDS: D5% in Water 1,000 ML IVC SCH (20:27)
[2021-03-26 08:07] LABS: Basophils # 0.1 K/mcL (0.0-0.2); Basophils % 0.5 %; Eosinophils # 0.4 K/mcL (0.0-0.6); Eosinophils % 2.6 %; Hematocrit 34.9 % (37.5-50.1); Hemoglobin 10.6 g/dL (12.9-16.9); Immature Granulocytes % 1.7 % (0-4); Lymphocytes # 1.4 K/mcL (0.6-4.6); Lymphocytes % 8.6 %; Mean Corpuscular HGB Conc 30.4 g/dL (31.6-35.5); Mean Corpuscular Volume 108.7 fL (83.0-100.0); Mean Platelet Volume 10.2 fL (9.4-12.4); Monocytes # 0.6 K/mcL (0.0-1.3); Nucleated Red Blood Cells 0.3 /100 WBC (0); Platelet Count 306 K/mcL (140-400); Red Blood Count 3.21 M/mcL (4.19-5.50); Red Cell Distribution Width 14.6 % (11.5-14.5); Segmented Neutrophils % 82.6 %; White Blood Count 15.7 K/mcL (4.3-11.1)
[2021-03-26 08:13] LABS: BUN/Creatinine Ratio 18 (6-26); Blood Urea Nitrogen 20 mg/dL (8-23); Calcium 9.2 mg/dL (8.6-10.3); Chloride 106 mEq/L (98-107); Glucose 111 mg/dL (70-105); Magnesium 2.1 mg/dL (1.6-2.6); Osmolality,Calculated 301 (280-300); Potassium 3.9 mEq/L (3.5-5.1); Sodium 144 mEq/L (136-145); eGFR For African Americans > 60 (> 60); eGFR For Non-African Americans > 60 (> 60)
[2021-03-26] MEDS: Aspirin 81 MG TAB.CHEW PO SCH (09:08)
[2021-03-26] MEDS: Furosemide 40 MG TABLET PO SCH (09:09)
[2021-03-26] MEDS: DilTIAZem CD (24hr) 120 MG CAP.ER.24H PO SCH (09:09)
[2021-03-26] MEDS: BuPROPion XL (24 HR) 150 MG TABLET PO SCH (09:09)
[2021-03-26] MEDS: Gabapentin 300 MG CAPSULE PO SCH ×2 (09:09→21:54)
[2021-03-26] MEDS: Apixaban 5 MG TABLET PO SCH ×2 (09:09→21:54)
[2021-03-26] MEDS: Metoprolol XL (24 HR) Succ 50 MG TAB.ER.24H PO SCH ×2 (09:10→21:54)
[2021-03-26] MEDS: Cyanocobalamin (B-12) 1,000 MCG TABLET PO SCH (09:10)
[2021-03-26 09:56] LABS: Carbon Dioxide 35 mEq/L (23-29)
[2021-03-26 10:16] LABS: VBG Base Excess 4 mEq/L; VBG Chloride 105 mEq/L (98-107); VBG Glucose 133 mg/dl (65-95); VBG HCO3 34 mEq/L (21-27); VBG Ionized Calcium 1.29 mmol/L (1.15-1.35); VBG Oxygen Saturation 58 %; VBG PCO2 85 mmHg (41-51); VBG PH 7.21 pH Units (7.32-7.42); VBG PO2 38 mmHg (25-50); VBG Total CO2 37 mEq/L
[2021-03-26] MEDS: Cefepime HCl 2,000 MG in 0.9 % Sodium Chloride Mini Bag 100 ML IVPB SCH ×2 (11:10→23:27)
[2021-03-26 12:39] LABS: Adenovirus Not Detected (Not Detect); Bordetella Pertussis Not Detected (Not Detect); Chlamydophila pneumoniae Not Detected (Not Detect); Coronavirus 229E Not Detected (Not Detect); Coronavirus HKU1 Not Detected (Not Detect); Coronavirus NL63 Not Detected (Not Detect); Coronavirus OC43 Not Detected (Not Detect); Human Metapneumovirus Not Detected (Not Detect); Human Rhinovirus/Enterovirus Not Detected (Not Detect); Influenza A Subtype 2009 H1 Not Detected (Not Detect); Influenza B Not Detected (Not Detect); Mycoplasma pneumoniae Not Detected (Not Detect); Parainfluenza Virus 1 Not Detected (Not Detect); Parainfluenza Virus 2 Not Detected (Not Detect); Parainfluenza Virus 3 Not Detected (Not Detect); Parainfluenza Virus 4 Not Detected (Not Detect); Respiratory Syncytial Virus Not Detected (Not Detect); SARS-CoV-2 Not Detected (Not Detect)
[2021-03-26] MEDS: Doxycycline 100 MG in 0.9 % Sodium Chloride Mini Bag 100 ML IVPB SCH ×2 (13:14→23:27)
[2021-03-26 14:48] LABS: VBG HCO3 36 mEq/L (21-27); VBG PCO2 80 mmHg (41-51); VBG PH 7.26 pH Units (7.32-7.42); VBG PO2 37 mmHg (25-50)
[2021-03-26 19:56] LABS: VBG HCO3 34 mEq/L (21-27); VBG PCO2 77 mmHg (41-51); VBG PH 7.25 pH Units (7.32-7.42); VBG PO2 36 mmHg (25-50)
[2021-03-26] MEDS ORDERED: methylPREDNISolone 125 MG/2 ML VIAL IVP ONE (20:09)
[2021-03-27 02:09] LABS: VBG HCO3 34 mEq/L (21-27); VBG PCO2 66 mmHg (41-51); VBG PH 7.32 pH Units (7.32-7.42); VBG PO2 83 mmHg (25-50)
[2021-03-27 04:48] LABS: ABG Base Excess 7 mEq/L (-2 to 3); ABG HCO3 33 mEq/L (21-27); ABG Oxygen Saturation 88 % (95-98); ABG PCO2 56 mmHg (35-45); ABG PH 7.38 pH Units (7.32-7.45); ABG PO2 58 mmHg (85-104); ABG TCO2 35 mEq/L (20-26); Blood Gas VT 550 cc
[2021-03-27] MEDS: BuPROPion XL (24 HR) 150 MG TABLET PO SCH (10:26)
[2021-03-27] MEDS: Aspirin 81 MG TAB.CHEW PO SCH (10:26)
[2021-03-27] MEDS: DilTIAZem CD (24hr) 120 MG CAP.ER.24H PO SCH (10:26)
[2021-03-27] MEDS: Metoprolol XL (24 HR) Succ 50 MG TAB.ER.24H PO SCH ×2 (10:26→21:13)
[2021-03-27] MEDS: Furosemide 40 MG TABLET PO SCH (10:27)
[2021-03-27] MEDS: Gabapentin 300 MG CAPSULE PO SCH ×2 (10:27→21:14)
[2021-03-27] MEDS: Apixaban 5 MG TABLET PO SCH ×2 (10:27→21:13)
[2021-03-27] MEDS: Cyanocobalamin (B-12) 1,000 MCG TABLET PO SCH (10:27)
[2021-03-27 11:52] LABS: Basophils % 0.2 %; Hemoglobin 10.3 g/dL (12.9-16.9); Immature Granulocytes % 1.3 % (0-4); Lymphocytes # 0.4 K/mcL (0.6-4.6); Lymphocytes % 2.9 %; Mean Corpuscular HGB Conc 31.2 g/dL (31.6-35.5); Mean Corpuscular Volume 105.8 fL (83.0-100.0); Mean Platelet Volume 10.1 fL (9.4-12.4); Monocytes # 0.1 K/mcL (0.0-1.3); Monocytes % 0.9 %; Neutrophils # 14.3 K/mcL (1.6-8.9); Nucleated Red Blood Cells 0.1 /100 WBC (0); Platelet Count 300 K/mcL (140-400); Red Blood Count 3.12 M/mcL (4.19-5.50); Red Cell Distribution Width 14.5 % (11.5-14.5); Segmented Neutrophils % 94.7 %; White Blood Count 15.1 K/mcL (4.3-11.1)
[2021-03-27 12:08] LABS: BUN/Creatinine Ratio 21 (6-26); Blood Urea Nitrogen 20 mg/dL (8-23); Calcium 8.9 mg/dL (8.6-10.3); Carbon Dioxide 33 mEq/L (23-29); Chloride 106 mEq/L (98-107); Glucose 119 mg/dL (70-105); Magnesium 1.9 mg/dL (1.6-2.6); Osmolality,Calculated 300 (280-300); Potassium 4.1 mEq/L (3.5-5.1); Sodium 143 mEq/L (136-145); eGFR For African Americans > 60 (> 60); eGFR For Non-African Americans > 60 (> 60)
[2021-03-27] MEDS: Cefepime HCl 2,000 MG in 0.9 % Sodium Chloride Mini Bag 100 ML IVPB SCH (13:07)
[2021-03-27] MEDS: Levalbuterol Neb 0.63 MG/3 ML IH SCH ×2 (15:54→21:09)
[2021-03-27] MEDS: Doxycycline 100 MG in 0.9 % Sodium Chloride Mini Bag 100 ML IVPB SCH (16:23)
[2021-03-28] MEDS: Cefepime HCl 2,000 MG in 0.9 % Sodium Chloride Mini Bag 100 ML IVPB SCH ×3 (00:07→23:28)
[2021-03-28] MEDS: Doxycycline 100 MG in 0.9 % Sodium Chloride Mini Bag 100 ML IVPB SCH ×3 (00:09→23:29)
[2021-03-28] MEDS: Levalbuterol Neb 0.63 MG/3 ML IH SCH ×4 (03:20→20:58)
[2021-03-28 09:59] LABS: Basophils % 0.2 %; Eosinophils # 0.1 K/mcL (0.0-0.6); Eosinophils % 0.8 %; Hemoglobin 10.3 g/dL (12.9-16.9); Lymphocytes # 1.2 K/mcL (0.6-4.6); Lymphocytes % 6.8 %; Mean Corpuscular HGB Conc 30.3 g/dL (31.6-35.5); Mean Corpuscular Hemoglobin 32.3 pg (28.0-33.3); Mean Corpuscular Volume 106.6 fL (83.0-100.0); Mean Platelet Volume 10.3 fL (9.4-12.4); Monocytes # 0.7 K/mcL (0.0-1.3); Monocytes % 3.9 %; Neutrophils # 14.9 K/mcL (1.6-8.9); Nucleated Red Blood Cells 0.1 /100 WBC (0); Platelet Count 345 K/mcL (140-400); Red Blood Count 3.19 M/mcL (4.19-5.50); Red Cell Distribution Width 15.1 % (11.5-14.5); Segmented Neutrophils % 87.3 %; White Blood Count 17.1 K/mcL (4.3-11.1)
[2021-03-28 10:19] LABS: BUN/Creatinine Ratio 22 (6-26); Blood Urea Nitrogen 28 mg/dL (8-23); Calcium 9.3 mg/dL (8.6-10.3); Carbon Dioxide 34 mEq/L (23-29); Chloride 103 mEq/L (98-107); Glucose 130 mg/dL (70-105); Osmolality,Calculated 299 (280-300); Potassium 4.2 mEq/L (3.5-5.1); Sodium 141 mEq/L (136-145); eGFR For African Americans > 60 (> 60); eGFR For Non-African Americans 54 (> 60)
[2021-03-28] MEDS: Metoprolol XL (24 HR) Succ 50 MG TAB.ER.24H PO SCH ×2 (10:24→21:06)
[2021-03-28] MEDS: BuPROPion XL (24 HR) 150 MG TABLET PO SCH (10:24)
[2021-03-28] MEDS: Apixaban 5 MG TABLET PO SCH ×2 (10:24→21:06)
[2021-03-28] MEDS: Furosemide 40 MG TABLET PO SCH (10:24)
[2021-03-28] MEDS: Gabapentin 300 MG CAPSULE PO SCH ×2 (10:24→21:06)
[2021-03-28] MEDS: DilTIAZem CD (24hr) 120 MG CAP.ER.24H PO SCH (10:24)
[2021-03-28] MEDS: Aspirin 81 MG TAB.CHEW PO SCH (10:24)
[2021-03-28] MEDS: Cyanocobalamin (B-12) 1,000 MCG TABLET PO SCH (10:24)
[2021-03-28] MEDS ORDERED: Doxycycline 100 MG VIAL ONE (23:02)
[2021-03-29] MEDS: Levalbuterol Neb 0.63 MG/3 ML IH SCH ×2 (02:48→09:44)
[2021-03-29 05:40] LABS: Basophils # 0.1 K/mcL (0.0-0.2); Basophils % 0.5 %; Eosinophils # 0.2 K/mcL (0.0-0.6); Eosinophils % 1.4 %; Hematocrit 31.8 % (37.5-50.1); Hemoglobin 9.9 g/dL (12.9-16.9); Immature Granulocytes % 1.2 % (0-4); Lymphocytes # 1.6 K/mcL (0.6-4.6); Lymphocytes % 12.5 %; Mean Corpuscular HGB Conc 31.1 g/dL (31.6-35.5); Mean Platelet Volume 10.2 fL (9.4-12.4); Monocytes # 0.8 K/mcL (0.0-1.3); Monocytes % 5.9 %; Neutrophils # 10.2 K/mcL (1.6-8.9); Nucleated Red Blood Cells 0.2 /100 WBC (0); Platelet Count 303 K/mcL (140-400); Segmented Neutrophils % 78.5 %
[2021-03-29 06:01] LABS: BUN/Creatinine Ratio 26 (6-26); Blood Urea Nitrogen 34 mg/dL (8-23); Carbon Dioxide 33 mEq/L (23-29); Chloride 103 mEq/L (98-107); Glucose 94 mg/dL (70-105); Osmolality,Calculated 301 (280-300); Potassium 3.9 mEq/L (3.5-5.1); Sodium 142 mEq/L (136-145); eGFR For African Americans > 60 (> 60); eGFR For Non-African Americans 52 (> 60)
[2021-03-29 10:21] VITALS: BP 104/53; PULSE 68; TEMP 98; O2SAT 92
[2021-03-29] MEDS: Apixaban 5 MG TABLET PO SCH (10:23)
[2021-03-29] MEDS: BuPROPion XL (24 HR) 150 MG TABLET PO SCH (10:23)
[2021-03-29] MEDS: Cyanocobalamin (B-12) 1,000 MCG TABLET PO SCH (10:23)
[2021-03-29] MEDS: Aspirin 81 MG TAB.CHEW PO SCH (10:23)
[2021-03-29] MEDS: Metoprolol XL (24 HR) Succ 50 MG TAB.ER.24H PO SCH (10:23)
[2021-03-29] MEDS: Gabapentin 300 MG CAPSULE PO SCH (10:23)
[2021-03-29] MEDS: DilTIAZem CD (24hr) 120 MG CAP.ER.24H PO SCH (10:23)
[2021-03-29] MEDS: Furosemide 40 MG TABLET PO SCH (10:23)
== END 2021-03-29 13:20 | disposition other institution (70) | DRG 353 ==
LOC: SAMDAY 12:33 → 3ANU 20:26 → SUATTDRO 03-16 06:48 → 2NNU 03-20 14:59 → 3ANU 03-23 22:18
PROVIDERS: ADMIT Surgery; ATTEND Internal Medicine